=== PATIENT | male | born 1955 | race African-American/Black ===

== ENCOUNTER 2021-06-03 15:19 | Inpatient (IN) | payer OTHER ==
[~2021-06-03] VITALS: Ht 175.3 cm; Wt 70.3 kg
[2021-06-03] MEDS ORDERED: HYDR100T27 PO (15:59)
[2021-06-03] MEDS ORDERED: CRAN3875 PO (15:59)
[2021-06-03] MEDS ORDERED: METO25TA6 PO (15:59)
[2021-06-03] MEDS ORDERED: ACET-2154 PO (15:59)
[2021-06-03] MEDS ORDERED: HYDR-4209 PO (15:59)
[2021-06-03] MEDS ORDERED: ASCO500P18 PO (15:59)
[2021-06-03] MEDS ORDERED: CLON1PAT TD (15:59)
[2021-06-03] MEDS ORDERED: DEXT38GE12 PO (15:59)
[2021-06-03] MEDS ORDERED: AMLO10TA59 PO (15:59)
[2021-06-03] MEDS ORDERED: RISP1TAB97 PO (15:59)
[2021-06-03] MEDS ORDERED: DOCU-141 PO (15:59)
[2021-06-03] MEDS ORDERED: FERR325T28 PO (15:59)
[2021-06-03] MEDS ORDERED: INSU100V42 SQ (15:59)
[2021-06-03] MEDS ORDERED: GLUC1KIT IM (15:59)
[2021-06-03] MEDS ORDERED: MULT-213 PO (15:59)
[2021-06-03] MEDS ORDERED: GABA600T12 PO (15:59)
[2021-06-03] MEDS ORDERED: FAMO20TA8 PO (15:59)
[2021-06-03] MEDS ORDERED: ASPI81TA31 PO (15:59)
[2021-06-03] MEDS ORDERED: DOXA4TAB3 PO (15:59)
[2021-06-03] MEDS ORDERED: ACET-2605 PO ×2 (15:59)
[2021-06-03] MEDS ORDERED: CRAN425C6 PO (15:59)
[2021-06-03] MEDS ORDERED: APIX5TAB PO (15:59)
[2021-06-03] MEDS ORDERED: SENN-261 PO (15:59)
[2021-06-03 16:25] LABS: HEMATOCRIT 27.7 % (36.7-47.1); MEAN CORPUSCULAR VOLUME 86.1 fL (73.0-96.2); PLATELET COUNT (AUTO) 251 K/uL (152-348)
[2021-06-03 16:30] LABS: CREATININE 2.3 mg/dL (0.6-1.3); POTASSIUM 5.1 mmol/L (3.5-5.1)
[2021-06-03 16:38] LABS: *CLARITY,URINE CLOUDY (CLEAR); *COLOR,URINE YELLOW (YELLOW)
[2021-06-03 16:39] LABS: *BILIRUBIN,URIN SMALL (NEGATIVE); *BLOOD, URINE LARGE (NEGATIVE); *KETONES,URINE NEGATIVE (NEGATIVE); *UROBILINOGEN,URINE 0.2 E.U./dl (NORMAL); LEUKOCYTE ESTERASE ,URINE LARGE (NEGATIVE); NITRITE, URINE NEGATIVE (NEGATIVE); UGLUCOSE NEGATIVE (NEGATIVE)
[2021-06-03 16:43] LABS: BILIRUBIN,DIRECT 0.1 mg/dL (0.0-0.2); BILIRUBIN,TOTAL 0.3 mg/dL (0.2-1.0); TOTAL PROTEIN, SERUM 6.5 g/dL (6.4-8.2)
[2021-06-03 16:51] LABS: BACTERIA,URINE MANY /HPF (NONE SEEN); MUCUS,URINE FEW /LPF (0-FEW); RBC,URINE TNTC /HPF (0-3); SQUAMOUS EPITHELIAL CELL,UR NONE SEEN /HPF (NONE SEEN); URINE AMORPHOUS URATE MANY /HPF; WBC,URINE TNTC /HPF (0-3)
[2021-06-03] MEDS ORDERED: IV NS 1000 ML 1,000 ML IV ONE ×2 (17:30→18:30)
[2021-06-03] MEDS ORDERED: CEFTRIAXONE 1 G in IV DEXTROSE 5% 50 ML IV ONE (17:30)
[2021-06-03] MEDS ORDERED: CEFTRIAXONE /D5W 50ML IVPB **ER PYXIS IV ONE (17:39)
--- NOTE | 2021-06-03 19:10 | NUR ---
Received hands-off report from NOEMY Feliciano.
--- NOTE | 2021-06-03 19:43 | NUR ---
Report given to NOEMY Jeong.
--- NOTE | 2021-06-03 20:00 | NUR ---
Pt. admitted to telemetry 322, under care of Dr. Omega Avalos. Belongs List completed
--- NOTE | 2021-06-03 20:00 | NUR ---
Patient brought up from Emergency department at 2000. when recieving report it was told that patient is nonverbal, but patient is able to communicate and knows some what of what is going on. No signs or reports of shortness. Comfortable on room air, oxygen saturation within normal limits. Nonambulatory. Patient has many wounds, left heal, left leg, bilateral buttocks, and sacreal region. Bed in low and locked position, call light within reach. Safety and falf precautions in place. Will continue to monitor.
[2021-06-03 20:57] VITALS: BP 145/61
[2021-06-03] MEDS ORDERED: VANCOMYCIN IV 1,000 MG in IV DEXTROSE 5% 250 ML IV ONE (22:30)
[2021-06-03] MEDS ORDERED: INSULIN REGULAR, HUMAN 300 UNITS/3 ML VIAL SQ PRN (22:30)
[2021-06-03] MEDS ORDERED: MEROPENEM 1 G in IV NORMAL SALINE 100 ML IV SCH (22:30)
[2021-06-03] MEDS ORDERED: DEXTROSE 50% 50 ML DISP.SYRIN IV PRN (22:30)
[2021-06-03] MEDS ORDERED: PIPERACILLIN/TAZO 2.25 G in IV DEXTROSE 5% 50 ML IV SCH (22:30)
[2021-06-03] MEDS ORDERED: MEROPENEM 1 G in IV NORMAL SALINE 100 ML IV ONE (23:00)
[2021-06-03] MEDS ORDERED: VANCOMYCIN IV 200 ML ONE (23:32)
[2021-06-03] MEDS ORDERED: MEROPENEM 1GM/NS 100ML IVPB **ER PYXIS ONLY IV ONE (23:33)
[2021-06-03] MEDS: IV LACTATED RINGERS SOLUTION 1,000 ML IV PRN (23:49)
[2021-06-04 00:27] VITALS: BP 159/62
[2021-06-04 04:00] VITALS: BP 164/70
[2021-06-04] MEDS: hydrALAZINE HCL 50 MG TABLET PO SCH ×3 (05:56→23:03)
[2021-06-04] MEDS: BLOOD SUGAR DIAGNOSTIC 1 EACH STRIP VI SCH ×4 (06:46→20:39)
--- NOTE | 2021-06-04 07:09 | NUR ---
patient resting comfortably. No reports of pain at this time. No signs of distress. Medications given as ordered. Last accu check 105. No need for insulin coverage. Wound care consult ordered for multiple pressure ulcers. Blood pressure elevated, given hydralazine as ordered.
--- NOTE | 2021-06-04 07:15 | NUR ---
received patient in bed awake in stable condition, no complains of any SOB, pain or discomfort at this time. patient on room air. safety precautions in place. call light within reach. will continue to monitor.
[2021-06-04 08:58] VITALS: BP 125/52
[2021-06-04] MEDS: APIXABAN 5 MG TABLET PO SCH ×3 (09:00→16:48)
[2021-06-04] MEDS: risperiDONE 1 MG TABLET PO SCH ×3 (09:00→16:48)
[2021-06-04] MEDS: FERROUS SULFATE 325 MG TABEC PO SCH ×2 (09:00→09:08)
[2021-06-04] MEDS: ASPIRIN 81 MG TAB.CHEW PO SCH (09:07)
[2021-06-04] MEDS: AMLODIPINE 10 MG TABLET PO SCH (09:08)
[2021-06-04] MEDS: GABAPENTIN 300 MG CAPSULE PO SCH (09:08)
[2021-06-04] MEDS: METOPROLOL TARTRATE 25 MG TABLET PO SCH ×2 (09:08→16:43)
[2021-06-04 11:02] LABS: POTASSIUM 4.4 mmol/L (3.5-5.1)
--- NOTE | 2021-06-04 11:29 | NUR ---
WOUND CARE CONSULT: PT PRESENTS WITH MULTIPLE AREAS OF SCARRING TO LOWER EXTREMITIES, BUTTOCKS AND SACRUM WITH SOME OPEN AREAS OF MOISTURE AND LEFT FOOT WOUND,PRESENT ON ADMISSION. DPM CONSULT CALLED TO DR MEDINA. RECOMMENDATIONS MADE FOR SKIN PROTECTION. DISCUSSED WITH NURSING STAFF.MD IN AGREEMENT WITH PLAN OF CARE. PT IS REFUSING LOW AIRLOSS MATTRESS. MD IN AGREEMENT WITH PLAN OF CARE.
[2021-06-04] MEDS ORDERED: Z GUARD REMEDY PASTE 57 GM TUBE TOP PRN (11:45)
[2021-06-04 12:38] VITALS: BP 120/52
[2021-06-04] MEDS: MEROPENEM 1 G in IV NORMAL SALINE 100 ML IV SCH (13:59)
[2021-06-04] MEDS ORDERED: MEROPENEM 1 G in IV NORMAL SALINE 100 ML IV SCH (14:00)
[2021-06-04] MEDS: INSULIN REGULAR, HUMAN 300 UNIT/3 ML VIAL SQ PRN (16:42)
[2021-06-04 16:57] VITALS: BP 119/54
--- NOTE | 2021-06-04 18:33 | NUR ---
patient in bed sleeping in stable condition. no signs of any SOB, pain or discomfort noted at this time. elaine catheter draining well. midline patent and intact. call light within reach. will report to oncoming shift.
[2021-06-04 20:06] VITALS: BP 113/44
[2021-06-04] MEDS: DOXAZOSIN 2 MG TABLET PO SCH (20:31)
[2021-06-04] MEDS: SENNOSIDES 1 TABLET PO SCH (20:31)
[2021-06-04] MEDS: Z GUARD REMEDY PASTE 57 GM TUBE TOP SCH (20:32)
[2021-06-04] MEDS: IV LACTATED RINGERS SOLUTION 1,000 ML IV PRN (20:32)
--- NOTE | 2021-06-04 20:40 | NUR ---
Patient blood sugar 158 but refused 2 units sliding scale.
--- NOTE | 2021-06-04 22:00 | NUR ---
Patient alert oriented, no complain of pain, require total assist with adl's. Patient on elaine cath draining with yellow color urine in moderate amount, left upper arm midline patent and intact, patient too suspicious with the care, explained to patient all procedures done and medication given. cont to monitor.
[2021-06-04] MEDS: VANCOMYCIN IV 1,000 MG in IV DEXTROSE 5% 250 ML IV SCH (22:54)
[2021-06-05] VITALS: BP 144/63
[2021-06-05] MEDS: MEROPENEM 1 G in IV NORMAL SALINE 100 ML IV SCH ×2 (02:07→14:10)
[2021-06-05] MEDS: hydrALAZINE HCL 50 MG TABLET PO SCH ×3 (06:16→21:14)
[2021-06-05] MEDS: BLOOD SUGAR DIAGNOSTIC 1 EACH STRIP VI SCH ×4 (06:16→21:11)
--- NOTE | 2021-06-05 07:08 | NUR ---
Patient alert no sob no chest pain, no complain of pain, tele monitor sinus rhtyhm. Treatment done on sacrum excoriation, right foot wound, left heel wound, patient uncooperative with care, refused to be turn and reposition, refused to be clean, refused lab works done, explained the risk and benefit but refused, report to AM glass sander belt Nurse.
[2021-06-05 08:00] VITALS: BP 140/55
[2021-06-05 08:14] LABS: MEAN CORPUSCULAR HEMOGLOBIN 27.3 uug (23.8-33.4); MEAN CORPUSCULAR VOLUME 84.9 fL (73.0-96.2); PLATELET COUNT (AUTO) 215 K/uL (152-348)
[2021-06-05 08:31] LABS: CREATININE 1.8 mg/dL (0.6-1.3); MAGNESIUM 1.8 mg/dL (1.8-2.4); PHOSPHOROUS 3.5 mg/dL (2.5-4.9); POTASSIUM 4.3 mmol/L (3.5-5.1)
[2021-06-05] MEDS: ASPIRIN 81 MG TAB.CHEW PO SCH (08:45)
[2021-06-05] MEDS: GABAPENTIN 300 MG CAPSULE PO SCH (08:47)
[2021-06-05] MEDS: FERROUS SULFATE 325 MG TABEC PO SCH (08:47)
[2021-06-05] MEDS: risperiDONE 1 MG TABLET PO SCH ×2 (08:47→17:16)
[2021-06-05] MEDS: AMLODIPINE 10 MG TABLET PO SCH (08:52)
[2021-06-05] MEDS: METOPROLOL TARTRATE 25 MG TABLET PO SCH ×2 (08:53→17:16)
[2021-06-05] MEDS: APIXABAN 5 MG TABLET PO SCH ×3 (08:57→18:09)
[2021-06-05] MEDS: INSULIN REGULAR, HUMAN 300 UNIT/3 ML VIAL SQ PRN ×2 (08:58→16:25)
[2021-06-05 08:59] LABS: HEMATOCRIT 24.6 % (36.7-47.1)
[2021-06-05] MEDS: Z GUARD REMEDY PASTE 57 GM TUBE TOP SCH ×2 (09:39→20:19)
[2021-06-05] MEDS: MUPIROCIN 2% OINT 22 GM TUBE NS SCH ×2 (09:40→20:23)
[2021-06-05] MEDS: IV LACTATED RINGERS SOLUTION 1,000 ML IV PRN ×2 (09:44→20:32)
[2021-06-05 16:45] VITALS: BP 145/60
[2021-06-05] MEDS: GLUCERNA SHAKE VANILLA 237 ML CAN PO SCH (17:17)
--- NOTE | 2021-06-05 17:27 | NUR ---
Notified Dr. Avalos that patient had some minor bleeding on feet after feet were cleaned and dry skin peeled off. Held eliquis at this time.
--- NOTE | 2021-06-05 18:05 | NUR ---
Received return call from Dr. Avalos, orders received to administer dose of eliquis despite bleeding.
--- NOTE | 2021-06-05 18:39 | NUR ---
Patient continues to be alert and oriented, Room air saturation WNL, hemodynamically stable, afebrile. No needs at this time. Wound care performed, bed in low position, side rails upx2, bed alarm on.
[2021-06-05] MEDS: SENNOSIDES 1 TABLET PO SCH (20:20)
[2021-06-05] MEDS: DOXAZOSIN 2 MG TABLET PO SCH (20:43)
[2021-06-05 20:45] VITALS: BP 112/58
--- NOTE | 2021-06-05 20:47 | NUR ---
PATIENT REFUSED CARDURA MEDICATION HE SAID HE DOESN'T TAKE CARDURA MEDICATION .
--- NOTE | 2021-06-05 21:11 | NUR ---
fingerstick blood sugar 167 mg/dl,patikevin refused insulin sliding scale he said he doesn't not need insulin for that sugar .
[2021-06-05] MEDS: VANCOMYCIN IV 1,000 MG in IV DEXTROSE 5% 250 ML IV SCH (22:58)
[2021-06-06] VITALS (7 sets, daily range): BP systolic 130–162; BP diastolic 60–80
[2021-06-06] MEDS: MEROPENEM 1 G in IV NORMAL SALINE 100 ML IV SCH ×2 (01:40→14:13)
[2021-06-06] MEDS: hydrALAZINE HCL 50 MG TABLET PO SCH ×3 (05:14→22:55)
--- NOTE | 2021-06-06 05:40 | NUR ---
with SUPERVISOR MAJOR APPLIANCE ASSEMBLY HELP am care offered to patient ,PATIENT refused and dont want to be touch and reposition.patient also REFUSED wound dressing HE WANTS IT DONE ONLY BY WOUND CARE NURSE told patient that wound care nurse gave us nurses wound care orders he said NO and it can wait on Monday .
[2021-06-06] MEDS: BLOOD SUGAR DIAGNOSTIC 1 EACH STRIP VI SCH ×4 (06:49→22:30)
[2021-06-06 07:40] LABS: HEMATOCRIT 24.4 % (36.7-47.1); MEAN CORPUSCULAR HEMOGLOBIN 27.2 uug (23.8-33.4); MEAN CORPUSCULAR VOLUME 83.8 fL (73.0-96.2); PLATELET COUNT (AUTO) 215 K/uL (152-348)
[2021-06-06 08:04] LABS: CREATININE 1.6 mg/dL (0.6-1.3); PHOSPHOROUS 3.2 mg/dL (2.5-4.9); POTASSIUM 4.1 mmol/L (3.5-5.1)
[2021-06-06] MEDS: GABAPENTIN 300 MG CAPSULE PO SCH (08:58)
[2021-06-06] MEDS: risperiDONE 1 MG TABLET PO SCH ×2 (08:58→17:20)
[2021-06-06] MEDS: METOPROLOL TARTRATE 25 MG TABLET PO SCH ×2 (08:58→17:21)
[2021-06-06] MEDS: ASPIRIN 81 MG TAB.CHEW PO SCH (08:58)
[2021-06-06] MEDS: AMLODIPINE 10 MG TABLET PO SCH (08:58)
[2021-06-06] MEDS: FERROUS SULFATE 325 MG TABEC PO SCH (08:58)
[2021-06-06] MEDS: ARGININE/GLUTAMINE/CALCIUM BMB 1 EACH POWD.PACK PO SCH ×2 (09:00→17:21)
[2021-06-06] MEDS: GLUCERNA SHAKE VANILLA 237 ML CAN PO SCH ×2 (09:00→17:25)
[2021-06-06] MEDS: Z GUARD REMEDY PASTE 57 GM TUBE TOP SCH ×2 (09:00→20:48)
[2021-06-06] MEDS: MUPIROCIN 2% OINT 22 GM TUBE NS SCH ×2 (09:01→20:49)
[2021-06-06] MEDS: APIXABAN 5 MG TABLET PO SCH ×2 (09:03→17:21)
[2021-06-06] MEDS: IV LACTATED RINGERS SOLUTION 1,000 ML IV PRN ×2 (09:08→20:00)
[2021-06-06] MEDS: THERAHONEY GEL 1.5 OZ TUBE TOP SCH (09:10)
[2021-06-06] MEDS: INSULIN REGULAR, HUMAN 300 UNIT/3 ML VIAL SQ PRN (12:30)
[2021-06-06] MEDS: FLUOCINONIDE 0.05% CREAM 30 GM TUBE TP SCH (17:26)
--- NOTE | 2021-06-06 18:45 | NUR ---
Patient was cooperative with care, all needs met. Placed on air mattress. Dr. Avalos notified of rash on abdomen and legs, scraping taken and reviewed by Dr. Avalos. Med orders received, and applied as ordered. Patient in no distress at this time, bed in low position, side rails upx2.
[2021-06-06] MEDS: DOXAZOSIN 2 MG TABLET PO SCH (20:47)
[2021-06-06] MEDS: SENNOSIDES 1 TABLET PO SCH (20:56)
[2021-06-07 00:06] VITALS: BP 170/67
[2021-06-07] MEDS: MEROPENEM 1 G in IV NORMAL SALINE 100 ML IV SCH ×2 (02:05→14:06)
[2021-06-07] MEDS: BLOOD SUGAR DIAGNOSTIC 1 EACH STRIP VI SCH ×3 (06:12→16:30)
[2021-06-07] MEDS: hydrALAZINE HCL 50 MG TABLET PO SCH ×2 (06:12→14:07)
[2021-06-07 06:36] LABS: HEMATOCRIT 24.7 % (36.7-47.1); MEAN CORPUSCULAR HEMOGLOBIN 26.9 uug (23.8-33.4); MEAN CORPUSCULAR VOLUME 83.8 fL (73.0-96.2); PLATELET COUNT (AUTO) 202 K/uL (152-348)
[2021-06-07 06:56] LABS: CREATININE 1.5 mg/dL (0.6-1.3); MAGNESIUM 1.7 mg/dL (1.8-2.4); PHOSPHOROUS 2.9 mg/dL (2.5-4.9)
--- NOTE | 2021-06-07 07:30 | NUR ---
Alert, oriented x 4, able to verbalized needs appropriately. Legally blind. IVF infusing well
[2021-06-07] MEDS: FERROUS SULFATE 325 MG TABEC PO SCH ×2 (09:00→09:19)
[2021-06-07] MEDS ORDERED: CLONIDINE-TTS 1 PATCH TD SCH (09:00)
[2021-06-07] MEDS: ARGININE/GLUTAMINE/CALCIUM BMB 1 EACH POWD.PACK PO SCH ×2 (09:00→17:00)
[2021-06-07] MEDS: ASPIRIN 81 MG TAB.CHEW PO SCH (09:18)
[2021-06-07] MEDS: GABAPENTIN 300 MG CAPSULE PO SCH (09:20)
[2021-06-07] MEDS: risperiDONE 1 MG TABLET PO SCH ×2 (09:20→18:10)
[2021-06-07] MEDS: THERAHONEY GEL 1.5 OZ TUBE TOP SCH (09:23)
[2021-06-07] MEDS: AMLODIPINE 10 MG TABLET PO SCH (09:24)
[2021-06-07] MEDS: METOPROLOL TARTRATE 25 MG TABLET PO SCH ×2 (09:24→18:11)
[2021-06-07] MEDS: APIXABAN 5 MG TABLET PO SCH ×2 (09:27→18:11)
[2021-06-07] MEDS: GLUCERNA SHAKE VANILLA 237 ML CAN PO SCH ×2 (09:28→18:12)
[2021-06-07] MEDS ORDERED: MAGNESIUM SULFATE/D5W 100 ML IV SCH (09:30)
[2021-06-07 11:36] VITALS: BP 158/66
[2021-06-07] MEDS: MUPIROCIN 2% OINT 22 GM TUBE NS SCH (11:57)
[2021-06-07] MEDS: Z GUARD REMEDY PASTE 57 GM TUBE TOP SCH (11:57)
[2021-06-07] MEDS: INSULIN REGULAR, HUMAN 300 UNIT/3 ML VIAL SQ PRN (11:58)
[2021-06-07] MEDS: FLUOCINONIDE 0.05% CREAM 30 GM TUBE TP SCH ×3 (11:58→18:13)
[2021-06-07] MEDS ORDERED: MERO1VIA23 IV (14:51)
[2021-06-07] MEDS ORDERED: FLUO15CR TP (14:51)
[2021-06-07 15:52] VITALS: BP 140/65
[2021-06-07 18:11] VITALS: BP 145/60
--- NOTE | 2021-06-07 19:00 | NUR ---
With discharge order to SNF but per CM patient refused SNF placement and wants to be discharge to the street. Homeless resources provided but refused and will acces own transportation. Midline removed. Tele removed. ID band removed. Provided with clothing and wheelchair. Discharged via wheelchair in fair condition, not in distress, afebrile
[2021-06-07] MEDS ORDERED: MEROPENEM 1 G in IV NORMAL SALINE 100 ML IV SCH (22:00)
[2021-06-07] MEDS ORDERED: MEROPENEM 0.5 G in IV NORMAL SALINE 50 ML IV SCH (22:00)
== END 2021-06-07 20:43 | disposition home or self-care (01) | DRG 720 ==
LOC: ER 15:19 → TELE3 19:50
PROVIDERS: ADMIT Nurse Practitioner Acute Care; ATTEND Nurse Practitioner Acute Care
PROC: B547ZZA Ultrasonography of Left Subclavian Vein, Guidance (ICD-10-PCS; principal; 2021-06-04)
PROC: 05H633Z Insertion of Infusion Device into Left Subclavian Vein, Percutaneous Approach (ICD-10-PCS; principal; 2021-06-04)
DX: A41.9 Sepsis, unspecified organism (principal); N17.0 Acute kidney failure with tubular necrosis; G93.41 Metabolic encephalopathy; L89.153 Pressure ulcer of sacral region, stage 3; E87.2 Acidosis; E11.22 Type 2 diabetes mellitus with diabetic chronic kidney disease; E11.42 Type 2 diabetes mellitus with diabetic polyneuropathy; E11.622 Type 2 diabetes mellitus with other skin ulcer; N39.0 Urinary tract infection, site not specified; D64.9 Anemia, unspecified; E78.5 Hyperlipidemia, unspecified; F03.90 Unspecified dementia, unspecified severity, without behavioral disturbance, psychotic disturbance, mood disturbance, and anxiety; J45.909 Unspecified asthma, uncomplicated; K21.9 Gastro-esophageal reflux disease without esophagitis; N18.9 Chronic kidney disease, unspecified; Z79.4 Long term (current) use of insulin; Z87.440 Personal history of urinary (tract) infections; Z79.899 Other long term (current) drug therapy; Z79.01 Long term (current) use of anticoagulants; I25.10 Atherosclerotic heart disease of native coronary artery without angina pectoris; N31.9 Neuromuscular dysfunction of bladder, unspecified; N13.9 Obstructive and reflux uropathy, unspecified; L97.919 Non-pressure chronic ulcer of unspecified part of right lower leg with unspecified severity; L97.929 Non-pressure chronic ulcer of unspecified part of left lower leg with unspecified severity; Z74.09 Other reduced mobility; Z99.3 Dependence on wheelchair; Z20.822 Contact with and (suspected) exposure to COVID-19; M81.0 Age-related osteoporosis without current pathological fracture; I12.9 Hypertensive chronic kidney disease with stage 1 through stage 4 chronic kidney disease, or unspecified chronic kidney disease
CPT/HCPCS: 36415; 70030-TC; 71045; 83605; 83735; 84100; 85025; 85730; 87040; 87086; 93005; 97161; A4663; G0378; J0696; J1815; J2185; J3370; J3475; J3490; J7030; J7060; J7120

== ENCOUNTER 2021-06-07 21:00 | Emergency (ER) | payer OTHER ==
[~2021-06-07] VITALS: Ht 172.7 cm; Wt 74.8 kg
[~2021-06-07 21:00] MED LIST: ACET-2154 PO; ACET-2605 PO; AMLO10TA59 PO; APIX5TAB PO; ASCO500P18 PO; ASPI81TA31 PO; CLON1PAT TD; CRAN3875 PO; CRAN425C6 PO; DEXT38GE12 PO; DOCU-141 PO; DOXA4TAB3 PO; FAMO20TA8 PO; FERR325T28 PO; FLUO15CR TP; GABA600T12 PO; GLUC1KIT IM; HYDR-4209 PO; HYDR100T27 PO; INSU100V42 SQ; MERO1VIA23 IV; METO25TA6 PO; MULT-213 PO; RISP1TAB97 PO; SENN-261 PO
[2021-06-07] MEDS ORDERED: NEOMY/BACITRA/POLYMYXIN B OINT UD PACKET TP ONE ×2 (22:15→22:50)
--- NOTE | 2021-06-07 22:36 | NUR ---
Paged Omega Avalos DNP as requested by Dr Gomez.
--- NOTE | 2021-06-08 00:10 | NUR ---
called [facility], , to talk to the child welfare caseworker to verify pt's place at the center. the person who answered the phone was unable to verify and said to call back at 0900 am.
--- NOTE | 2021-06-08 03:54 | NUR ---
care of the pt endorsed to contreras Jarrett. pt resting, no sign of distress,
--- NOTE | 2021-06-08 09:34 | NUR ---
PT IS RESTING IN BED COMFORTABLY. [facility] WAS CALLED TO GIVE REPORT FOR THE PT. PT IS GOING TO BE TRANSFERED TO HIS NURSING FACILITY VIA S AMBULANCE OF [facility] ([phone]). [facility] IS 1230 PM. TRAKING #[id number]. SPOKE TO ACCURACY EXPERT RAIMUNDO.
--- NOTE | 2021-06-08 12:37 | NUR ---
PT LEFT TO HIS [facility] FACILITY VIA BLS AMBULANCE. REPORT WAS GIVEN TO AMBULANCE EMT.
[2021-06-08 12:41] VITALS: BP 136/75
== END 2021-06-08 12:42 ==
LOC: ER 21:00
DX: S99.922A Unspecified injury of left foot, initial encounter (principal); V79.88XA Bus occupant (driver) (passenger) injured in other specified transport accidents, initial encounter; Y92.410 Unspecified street and highway as the place of occurrence of the external cause; H54.8 Legal blindness, as defined in USA; J45.909 Unspecified asthma, uncomplicated; K21.9 Gastro-esophageal reflux disease without esophagitis; E78.5 Hyperlipidemia, unspecified; I25.10 Atherosclerotic heart disease of native coronary artery without angina pectoris; E11.9 Type 2 diabetes mellitus without complications; Z79.4 Long term (current) use of insulin; Z79.01 Long term (current) use of anticoagulants; Z79.899 Other long term (current) drug therapy
CPT/HCPCS: 73630; A4217; A4663

== ENCOUNTER 2021-06-11 21:29 | Emergency (ER) | payer OTHER ==
[~2021-06-11] VITALS: Ht 172.7 cm; Wt 72.6 kg
[~2021-06-11 21:29] MED LIST changes: -ACET-2154 PO; -CRAN3875 PO; -GLUC1KIT IM
--- NOTE | 2021-06-11 21:35 | NUR ---
Pt BIB private ambulance from [facility] for abnormal labs HBG 7.1/ HCT 22.2 A/O x3, no SOB or labored breathing, denies any CP/pressure. Denies any GI/ distress.
--- NOTE | 2021-06-11 21:40 | NUR ---
Dr. morgan at bedside, MSE in progress.
--- NOTE | 2021-06-11 22:03 | NUR ---
Note dandrejaime in EDM - 06/11/21 at 2237 by CHIQUI Pt BIB private ambulance from [facility] for abnormal labs HBG 7.1/ HCT 22.2 A/O x3, no SOB or labored breathing, denies any CP/pressure. Denies any GI/ distress.
[2021-06-11 22:11] LABS: HEMATOCRIT 22.9 % (36.7-47.1); MEAN CORPUSCULAR HEMOGLOBIN 27.4 uug (23.8-33.4); MEAN CORPUSCULAR VOLUME 84.2 fL (73.0-96.2); PLATELET COUNT (AUTO) 213 K/uL (152-348)
[2021-06-11 22:21] LABS: CREATININE 1.8 mg/dL (0.6-1.3); POTASSIUM 3.7 mmol/L (3.5-5.1)
[2021-06-11] MEDS ORDERED: CYANOCOBALAMIN 1000 MCG/ML VIAL IM ONE (23:45)
--- NOTE | 2021-06-11 23:57 | NUR ---
Called [facility] at [phone], spoke with Tiffany and made aware that patient is returning back to facility.
--- NOTE | 2021-06-12 00:05 | NUR ---
Called [facility] for traportation services atr [phone] and per Jaye unable to provide services until pass 7:00AM.
--- NOTE | 2021-06-12 00:11 | NUR ---
Called [facility] for transportation services and per Unruly " we are saturated at the moment and unable to provide you with services".
--- NOTE | 2021-06-12 00:13 | NUR ---
Called [facility] for transportation services and unable to provide transportation for the night.
[2021-06-12] MEDS ORDERED: CYANOCOBALAMIN 1000 MCG/ML VIAL ONE (00:17)
--- NOTE | 2021-06-12 00:18 | NUR ---
Called [facility] at [phone] and per AJ, transportation ambulance services are unable to be provided until pass afternoon.
--- NOTE | 2021-06-12 00:23 | NUR ---
[facility]ed [facility] at and unable to provide us with transportation services.
--- NOTE | 2021-06-12 00:46 | NUR ---
Called [facility] and spoke with Jaye, scheduled for slate picker at 7:30- 8:00 AM. Called [facility] and spoke with Tiffany, made aware of pt's retun time.
--- NOTE | 2021-06-12 02:35 | NUR ---
[facility] unit [facility] arrived at facility Attempted to call [facility], did not sheepskin pickler, unable to leave voicemail.
--- NOTE | 2021-06-12 02:45 | NUR ---
Patient discharged to [facility]. Written and verbal after care instructions given to [facility] unit [facility] verbalized understanding of instructions.
[2021-06-12 02:48] VITALS: BP 155/77
== END 2021-06-12 02:49 ==
LOC: ER 21:29
DX: D64.9 Anemia, unspecified (principal); E53.8 Deficiency of other specified B group vitamins; Z20.822 Contact with and (suspected) exposure to COVID-19; M62.50 Muscle wasting and atrophy, not elsewhere classified, unspecified site; F20.9 Schizophrenia, unspecified; E11.9 Type 2 diabetes mellitus without complications; Z79.4 Long term (current) use of insulin
CPT/HCPCS: 36415; 80048; 82607; 82728; 83550; 85025; 86850; 86900; 86901; 87426; 99283; J3420; A4663

== ENCOUNTER 2021-08-23 15:08 | Inpatient (IN) | payer OTHER ==
[~2021-08-23] VITALS: Ht 172.7 cm; Wt 77.1 kg
[2021-08-23] MEDS ORDERED: PIPERACILLIN SODIUM/TAZOBACTAM 3.375 G in IV DEXTROSE 5% 50 ML IV ONE (15:15)
[2021-08-23] MEDS ORDERED: VANCOMYCIN IV 1,000 MG in IV DEXTROSE 5% 250 ML IV ONE (15:15)
[2021-08-23] MEDS ORDERED: IV NORMAL SALINE 1000 ML BAG IV ONE ×2 (15:15→16:30)
[2021-08-23] MEDS ORDERED: PIPERACILLIN/TAZOBACTAM/D5W 50 ML IV ONE (15:45)
[2021-08-23] MEDS ORDERED: VANCOMYCIN IV 200 ML ONE (15:45)
[2021-08-23 16:01] LABS: HEMATOCRIT 23.3 % (36.7-47.1); MEAN CORPUSCULAR HEMOGLOBIN 27.3 uug (23.8-33.4); MEAN CORPUSCULAR VOLUME 85.9 fL (73.0-96.2); PLATELET COUNT (AUTO) 249 K/uL (152-348)
[2021-08-23 16:04] LABS: ABG BASE EXCESS -14.3 mmol/L; ABG HCO3 11.5 mmol/L; ABG PCO2 26.5 mmHg (35.0-45.0); ABG PH 7.255 (7.350-7.450); ABG PO2 128.9 mmHg (75.0-100.0); ABG SITE RIGHT RADIAL; ABG TOTAL HEMOGLOBIN 7.7 G/dL (13.5-18.0); COHb 0.8 % (0.5-1.5); MetHb 0.8 % (0.0-1.5); O2Hb 97.1 % (94.0-97.0)
[2021-08-23 16:09] LABS: POTASSIUM 6.1 mmol/L (3.5-5.1)
[2021-08-23 16:21] LABS: BILIRUBIN,DIRECT 0.6 mg/dL (0.0-0.2); BILIRUBIN,TOTAL 0.9 mg/dL (0.2-1.0)
[2021-08-23] MEDS ORDERED: SODIUM BICARBONATE 8.4% 50 MEQ/50 ML DISP.SYRIN IV ONE ×2 (16:30→16:47)
[2021-08-23] MEDS ORDERED: DEXTROSE 50% 50 ML DISP.SYRIN IV ONE (16:30)
[2021-08-23] MEDS ORDERED: INSULIN REGULAR, HUMAN 300 UNIT/3 ML VIAL IV ONE (16:30)
[2021-08-23] MEDS ORDERED: CALCIUM CHLORIDE 1 GM/10 ML DISP.SYRIN IVP ONE ×2 (16:30→16:46)
[2021-08-23 16:45] LABS: *BILIRUBIN,URIN NEGATIVE (NEGATIVE); *BLOOD, URINE 3+ (NEGATIVE); *CLARITY,URINE TURBID (CLEAR); *COLOR,URINE RED (YELLOW); *KETONES,URINE 1+ (NEGATIVE); *UROBILINOGEN,URINE 0.2 E.U./dl (NORMAL); LEUKOCYTE ESTERASE ,URINE 3+ (NEGATIVE); NITRITE, URINE NEGATIVE (NEGATIVE); UGLUCOSE NEGATIVE (NEGATIVE)
[2021-08-23] MEDS ORDERED: DEXTROSE 50% 50 ML DISP.SYRIN ONE (16:46)
[2021-08-23] MEDS ORDERED: INSULIN REGULAR, HUMAN 300 UNIT/3 ML VIAL ONE (16:47)
[2021-08-23] MEDS ORDERED: ALBUTEROL SULFATE 2.5 MG/3 ML NEBU NEB ONE (17:00)
[2021-08-23] MEDS ORDERED: NA P133E RC (17:22)
[2021-08-23] MEDS ORDERED: ACET-2154 PO (17:22)
[2021-08-23] MEDS ORDERED: ACET-73 PO (17:22)
[2021-08-23] MEDS ORDERED: CRAN3875 PO (17:22)
[2021-08-23 18:04] LABS: BACTERIA,URINE MODERATE /HPF (NONE SEEN); RBC,URINE TNTC /HPF (0-3); WBC,URINE TNTC /HPF (0-3)
[2021-08-23 18:05] LABS: MUCUS,URINE MODERATE /LPF (0-FEW); SQUAMOUS EPITHELIAL CELL,UR NONE SEEN /HPF (NONE SEEN)
--- NOTE | 2021-08-23 18:50 | NUR ---
midline rn eta 2200.
--- NOTE | 2021-08-23 19:33 | NUR ---
transfered pt to ccu. pt remained responsive only to pain ful stimuli, Rt suctioned the pt couple of times which improved the breathing rhonchi.
[2021-08-23 19:38] VITALS: BP 121/61
[2021-08-23 20:00] VITALS: BP 100/75
--- NOTE | 2021-08-23 20:30 | NUR ---
Patient is a 66y/o male from [facility] with a chief complaint of Abnormal Labs, Clogged Vuong catheter, and congestion. Patient arrived in the unit via ER gurney. Patient is obtunded responsive to painful stimuli only. Patient has very audible rhonchi able to be heard as soon as the door to the unit was opened. Patient arrived on 5L simple mask, SAT 99%. Sinus tachycardia on the monitor, BP stable. Patient suctioned via nasal suctioning by RT and thick purulent pink tinged sputum obtained. Lung sounds auscultated, no signs of diminishing throughout, rhonchi most prominent in the upper airway. Vuong catheter present is the one he came with from his facility, draining thick pus that is deras/yellow in color with pink tinged cloudy urine, blood clots present as well. Vuong catheter tube has vegetative growth on the inside of the tubing. This Vuong catheter I removed and replaced with a new 18fr. Vuong catheter. Bladder contents remain the same. If clogging of the Vuong catheter remains a problem, continuous bladder irrigation should be considered. Patient's penis has suffered the effects of prison catheterization with the urethra wall eroded away and the urinary meatus now several centimeters down the shaft of the penis, though no sign of current irritation, bleeding, or breakdown present. Patient has several skin issues with pressure wounds on both feet and ankles, full thickness wounds on the sacrum and buttocks as well as evidence of multiple healed pressure injuries on sacrum, buttocks, legs, feet and ankles. All wounds photographed and placed in the chart. Patient bathed and placed in a clean hospital gown. Legs are contracted in 90 degree angles, padded with pillows to offload wounds.
[2021-08-23] MEDS ORDERED: ACETAMINOPHEN 650 MG SUPP.RECT RC PRN (20:45)
[2021-08-23] MEDS ORDERED: IV D5/ 0.9% NACL 1,000 ML IV PRN (20:45)
[2021-08-23] MEDS ORDERED: ONDANSETRON 4 MG/2 ML VIAL IV PRN (20:45)
[2021-08-23 21:00] VITALS: BP 95/55
--- NOTE | 2021-08-23 21:07 | NUR ---
Patient has order for PICC line placement. Patient is obtunded and unable to give consent. Dr. Penny made aware that the patient is unable to consent and has no known family to contact for consent, and gave emergency consent for PICC line placement.
[2021-08-23 22:00] VITALS: BP 129/54
[2021-08-23] MEDS: MEROPENEM 0.5 G in IV NORMAL SALINE 50 ML IV SCH (22:10)
[2021-08-23 23:00] VITALS: BP 122/56
[2021-08-24] VITALS (25 sets, daily range): BP systolic 114–151; BP diastolic 44–94
[2021-08-24 05:26] LABS: MEAN CORPUSCULAR HEMOGLOBIN 27.3 uug (23.8-33.4); MEAN CORPUSCULAR VOLUME 87.8 fL (73.0-96.2); PLATELET COUNT (AUTO) 214 K/uL (152-348)
[2021-08-24 05:36] LABS: PHOSPHOROUS 6.4 mg/dL (2.5-4.9); POTASSIUM 5.1 mmol/L (3.5-5.1); TOTAL PROTEIN, SERUM 5.4 g/dL (6.4-8.2)
[2021-08-24 05:37] LABS: HEMATOCRIT 20.5 % (36.7-47.1)
[2021-08-24 05:41] LABS: CREATININE 9.1 mg/dL (0.6-1.3)
[2021-08-24 05:43] LABS: THYROID STIMULATING HORMONE 1.629 mIU/mL (0.358-3.740)
[2021-08-24] MEDS ORDERED: BLOOD SUGAR DIAGNOSTIC 1 EACH STRIP VI SCH (06:00)
--- NOTE | 2021-08-24 06:10 | NUR ---
Dr. Traore in the unit to assess the patient. Full report given. New orders entered by Dr. Traore. See orders in chart.
[2021-08-24] MEDS ORDERED: INSULIN REGULAR, HUMAN 300 UNIT/3 ML VIAL SQ PRN (06:15)
[2021-08-24] MEDS ORDERED: SODIUM BICARBONATE 8.4% 150 MEQ in IV D5W 1000ML 1,000 ML IV PRN (06:15)
[2021-08-24] MEDS ORDERED: DEXTROSE 50% 50 ML DISP.SYRIN IV PRN ×2 (06:15→07:30)
--- NOTE | 2021-08-24 06:15 | NUR ---
Dr. Traore signed Blood product consent form due to patient being obtunded, unable to consent, and having no known family to obtain consent from.
[2021-08-24] MEDS ORDERED: INSULIN REGULAR, HUMAN 300 UNITS/3 ML VIAL SQ PRN (07:30)
[2021-08-24] MEDS: BLOOD SUGAR DIAGNOSTIC 1 EACH STRIP VI SCH ×4 (07:48→20:53)
[2021-08-24] MEDS: SODIUM BICARBONATE 8.4% 150 MEQ in IV D5W 1000ML 1,000 ML IV SCH ×2 (07:51→20:47)
[2021-08-24] MEDS ORDERED: VANCOMYCIN IV 750 MG in IV DEXTROSE 5% 250 ML IV ONE (08:00)
[2021-08-24] MEDS: PANTOPRAZOLE SODIUM 40 MG VIAL IV SCH (08:03)
[2021-08-24] MEDS: Z GUARD REMEDY PASTE 57 GM TUBE TOP SCH ×2 (08:03→20:47)
--- NOTE | 2021-08-24 12:05 | NUR ---
WOUND CARE CONSULT: PT PRESENTS WITH RT HEEL DEEP TISSUE INJURY, LEFT FOOT WOUND, SACRAL STAGE 4 ULCER, SCARRING TO LEFT BUTTOCK SCAR AND RT BUTTOCK STAGE 4 ULCER WITH SCARRING, ALL PRESENT ON ADMISSION. RECOMMENDATIONS MADE FOR SKIN PROTECTION. DISCUSSED WITH NURSING STAFF. SURGICAL AND PODIATRY CONSULTS CALLED TO DR SEVILLA AND DR MEDINA. FIRST STEP LOW AIRLOSS MATTRESS IS ON ORDER. IN AGREEMENT WITH PLAN OF CARE. Addendum: 08/24/21 at 1207 by GO ANSARI RN Amended: Links added.
[2021-08-24 15:30] LABS: POTASSIUM 5.1 mmol/L (3.5-5.1)
[2021-08-24 15:34] LABS: CREATININE 8.7 mg/dL (0.6-1.3)
[2021-08-24 17:14] LABS: BAND % (MANUAL) 7 % (0-10); EOSINOPHILS % (MANUAL) 1 % (0-8); LYMPHOCYTES % (MANUAL) 7 % (20-40); MONOCYTES % (MANUAL) 2 % (2-10); NEUTROPHILS % (MANUAL) 83 % (42-75)
[2021-08-24] MEDS: IPRATROPIUM BROMIDE 0.5 MG/2.5 ML NEBU NEB PRN (17:44)
[2021-08-24] MEDS: ALBUTEROL SULFATE 2.5 MG/ 0.5 ML NEBU NEB PRN (17:44)
--- NOTE | 2021-08-24 19:45 | NUR ---
Received pt lethargic but arousable to voice and touch, alert to name and place and able to follow some simple commands. On 5L NC with O2 sats up to 98%. ST on monitor. No acute distress noted. Maintenance IVF running. F/C intact and patent. Skin assessment done, safety precautions maintained at all times. Continue plan of care.
[2021-08-24] MEDS: MEROPENEM 0.5 G in IV NORMAL SALINE 50 ML IV SCH (21:09)
[2021-08-25] VITALS (26 sets, daily range): BP systolic 120–175; BP diastolic 59–118
--- NOTE | 2021-08-25 01:00 | NUR ---
Pt desaturated down to 79% on 5L NC at this time. Titrated O2 up to 15L nonrebreather mask, O2 sats went up to 92%. HOB elevated. Pt arousable, eyes open spontaneously. No acute distress noted. ST on monitor. Continue to monitor pt.
[2021-08-25 04:50] LABS: HEMATOCRIT 25.3 % (36.7-47.1); MEAN CORPUSCULAR HEMOGLOBIN 27.6 uug (23.8-33.4); MEAN CORPUSCULAR VOLUME 83.5 fL (73.0-96.2); PLATELET COUNT (AUTO) 214 K/uL (152-348)
[2021-08-25 05:02] LABS: BILIRUBIN,TOTAL 1.4 mg/dL (0.2-1.0); MAGNESIUM 1.9 mg/dL (1.8-2.4); PHOSPHOROUS 6.9 mg/dL (2.5-4.9); POTASSIUM 4.7 mmol/L (3.5-5.1); TOTAL PROTEIN, SERUM 5.6 g/dL (6.4-8.2); VANCOMYCIN,RANDOM 18.8 ug/mL (18.0-26.0)
[2021-08-25 05:07] LABS: CREATININE 8.3 mg/dL (0.6-1.3)
--- NOTE | 2021-08-25 06:07 | NUR ---
Pt remains lethargic but arousable to voice and touch. On simple mask 10L with O2 sats > 92%. Pt suctioned noted with thick, deras to pink-tinged secretions. HOB elevated. No acute distress noted. ST on monitor. NG tube to right nare clamped. AM care provided, wound care done. Q2H repositioning. Continuous IVF running. F/C intact and patent. VSS, afebrile. Safety precautions maintained at all times. Will continue plan of care.
--- NOTE | 2021-08-25 06:13 | NUR ---
Dr. Traore at bedside to evaluate pt. Updated MD on pt condition. Continue plan of care.
[2021-08-25] MEDS: SODIUM BICARBONATE 8.4% 150 MEQ in IV D5W 1000ML 1,000 ML IV SCH ×2 (07:50→19:33)
[2021-08-25] MEDS: Z GUARD REMEDY PASTE 57 GM TUBE TOP SCH ×2 (07:51→20:17)
[2021-08-25] MEDS: BLOOD SUGAR DIAGNOSTIC 1 EACH STRIP VI SCH ×4 (07:51→20:17)
[2021-08-25] MEDS: PANTOPRAZOLE SODIUM 40 MG VIAL IV SCH (07:54)
[2021-08-25] MEDS: ALBUMIN HUMAN 25% 100 ML IV SCH ×3 (09:42→23:21)
[2021-08-25] MEDS: INSULIN REGULAR, HUMAN 300 UNIT/3 ML VIAL SQ PRN (11:43)
[2021-08-25] MEDS: ACETYLCYSTEINE 20% 800 MG/4 ML VIAL NEB SCH ×2 (15:35→23:21)
[2021-08-25] MEDS: LEVALBUTEROL HCL 1.25 MG/0.5 ML NEB NEB SCH ×2 (15:35→23:21)
--- NOTE | 2021-08-25 19:08 | NUR ---
patient has NGT placed resume BP/ home meds?
--- NOTE | 2021-08-25 19:30 | NUR ---
Report received. Patient admitted 08/23/21 DX: Sepsis, UTI and acute Renal Failure. Patient sleeping, arouses to name, able to follow commands but all extremities are contracted. Moans and groans during care especially turning and repositioning. business systems administrator: ST rate 100's-110's. Afebrile. O2 3 L NC; O2 saturations above 95%. Assessment completed; see ICU flow sheet for details. Addendum: 08/25/21 at 2253 by JALYN PERDOMO RN Amended: Links added. Addendum: 08/25/21 at 2254 by JALYN PERDOMO RN Amended: Links added. Addendum: 08/25/21 at 2253 by JALYN PERDOMO RN Amended: Links added. Addendum: 08/25/21 at 2253 by JALYN PERDOMO RN Amended: Links added. Addendum: 08/25/21 at 2255 by JLAYN PERDOMO RN Amended: Links added. Addendum: 08/25/21 at 2256 by JALYN PERDOMO RN Amended: Links added. Addendum: 08/25/21 at 2256 by JALYN PERDOMO RN Amended: Links added. Addendum: 08/25/21 at 2257 by JALYN PERDOMO RN Amended: Links added. Addendum: 08/25/21 at 4919 by JALYN PERDOMO RN Amended: Links added.
[2021-08-25] MEDS: ACETAMINOPHEN 650 MG/20.3 ML LIQUID UDC NG PRN (21:20)
[2021-08-25] MEDS: MEROPENEM 0.5 G in IV NORMAL SALINE 50 ML IV SCH (21:22)
--- NOTE | 2021-08-25 21:39 | NUR ---
Spoke to Emma Kumar re: patient's BPs trending high. Order received.
[2021-08-25] MEDS: hydrALAZINE HCL 20 MG/1 ML VIAL IV PRN (21:54)
--- NOTE | 2021-08-25 21:54 | NUR ---
Hydralazine 10mg IV given; BP 175/82, KV=058 ST.
--- NOTE | 2021-08-25 22:12 | NUR ---
Hydralazine effective.
[2021-08-26] VITALS (27 sets, daily range): BP systolic 125–173; BP diastolic 58–90
--- NOTE | 2021-08-26 00:30 | NUR ---
Incontinent of large green mucoid stools. Am care rendered. Wound care treatment done. Patient cooperative. Turned and repositioned. HOB elevated. Addendum: 08/26/21 at 0245 by JALYN PERDOMO RN Amended: Links added.
[2021-08-26 03:24] LABS: *OCCULT BLOOD STOOL POSITIVE (NEGATIVE)
[2021-08-26 04:51] LABS: MEAN CORPUSCULAR HEMOGLOBIN 26.8 uug (23.8-33.4); PLATELET COUNT (AUTO) 191 K/uL (152-348)
[2021-08-26 05:04] LABS: PHOSPHOROUS 5.8 mg/dL (2.5-4.9); POTASSIUM 3.8 mmol/L (3.5-5.1)
[2021-08-26] MEDS: ALBUMIN HUMAN 25% 100 ML IV SCH (05:16)
[2021-08-26] MEDS: hydrALAZINE HCL 20 MG/1 ML VIAL IV PRN ×2 (05:40→15:19)
[2021-08-26] MEDS ORDERED: VANCOMYCIN IV 750 MG in IV DEXTROSE 5% 250 ML IV ONE (06:00)
[2021-08-26] MEDS ORDERED: VANCOMYCIN IV 1,000 MG in IV DEXTROSE 5% 250 ML IV SCH (06:00)
[2021-08-26 06:01] LABS: ABG HCO3 21.9 mmol/L; ABG PCO2 33.3 mmHg (35.0-45.0); ABG PH 7.435 (7.350-7.450); ABG PO2 76.9 mmHg (75.0-100.0); ABG SITE RIGHT RADIAL; ABG TOTAL HEMOGLOBIN 8.9 G/dL (13.5-18.0); COHb 0.8 % (0.5-1.5); MetHb 0.4 % (0.0-1.5); O2Hb 94.2 % (94.0-97.0); VENT MODE Nasal Cannula
[2021-08-26] MEDS: BLOOD SUGAR DIAGNOSTIC 1 EACH STRIP VI SCH ×4 (06:31→21:21)
[2021-08-26] MEDS: IV 1/2NS 1000 ML 1,000 ML IV PRN (06:39)
--- NOTE | 2021-08-26 06:46 | NUR ---
End of shift notes: Patient more awake, able to make needs known. quality assurance monitor body ST-SR, SBP 170's-120's. Hydralazine 10 mg IV given x 2 during the shift. O2 3L NC; O2 sats above 94%. Requires deep nasopharyngeal suctioning, with thick deras secretions. Good cough reflex. Chest sounds: audible wheezing and rhonchi. Urine output 700 ml x 12 H.
[2021-08-26] MEDS: LEVALBUTEROL HCL 1.25 MG/0.5 ML NEB NEB SCH ×3 (07:12→23:30)
[2021-08-26] MEDS: ACETYLCYSTEINE 20% 800 MG/4 ML VIAL NEB SCH ×3 (07:12→23:36)
[2021-08-26] MEDS: Z GUARD REMEDY PASTE 57 GM TUBE TOP SCH ×2 (08:48→20:58)
[2021-08-26] MEDS: PANTOPRAZOLE SODIUM 40 MG VIAL IV SCH (08:48)
[2021-08-26] MEDS: MEROPENEM 0.5 G in IV NORMAL SALINE 50 ML IV SCH ×2 (10:49→22:26)
[2021-08-26] MEDS: INSULIN REGULAR, HUMAN 300 UNIT/3 ML VIAL SQ PRN (11:46)
[2021-08-26] MEDS: METOPROLOL TARTRATE 25 MG TABLET NG SCH ×2 (11:48→21:01)
--- NOTE | 2021-08-26 12:06 | NUR ---
Patient deep suctioned as he was having audible coarse lung sounds. Patient tolerated well.
[2021-08-26] MEDS: NEPRO 1000 ML GT PRN (18:00)
--- NOTE | 2021-08-26 19:05 | NUR ---
Received patient in bed awake and alert. Patient has audible wheezing and rhonchi, productive cough. Patient is SR/ST on the monitor. BP stable. NGT running Glucerna 1.2 @15mL/hr tolerating well. Vuong present draining clear yellow urine. ARPAN PICC patent running IVF.
--- NOTE | 2021-08-26 19:14 | NUR ---
Patient more awake, able to make needs known. Still somewhat confused to place. court recording monitor ST-SR, SBP 160's. Hydralazine 10 mg IV given x 1 during the shift. O2 3L NC; O2 sats above 94%. Requires deep nasopharyngeal suctioning, with thick deras secretions. Good cough reflex. Chest sounds: audible wheezing and rhonchi. Urine output 750 ml x 12 H.
--- NOTE | 2021-08-26 20:17 | NUR ---
Patient called me and asked for some water. Since the patient failed his swallow evaluation, I had to conduct a bedside swallow evaluation. i began with ice chips. The patient was able to chew and swallow these without aspirating. Good swallow reflex and laryngeal elevation present. Progressed to thin water, and the patient was able to swallow the water without aspiration. Gave the patient a cup of ice water which he drank through a straw, consuming 350ml without incident.
[2021-08-26] MEDS: IPRATROPIUM BROMIDE 0.5 MG/2.5 ML NEBU NEB PRN (23:34)
[2021-08-26] MEDS: ALBUTEROL SULFATE 2.5 MG/ 0.5 ML NEBU NEB PRN (23:35)
[2021-08-27] VITALS (25 sets, daily range): BP systolic 131–165; BP diastolic 65–88
[2021-08-27] MEDS: hydrALAZINE HCL 20 MG/1 ML VIAL IV PRN ×2 (04:15→13:45)
[2021-08-27] MEDS: IV 1/2NS 1000 ML 1,000 ML IV PRN (04:40)
[2021-08-27 04:52] LABS: HEMATOCRIT 26.6 % (36.7-47.1); MEAN CORPUSCULAR HEMOGLOBIN 27.2 uug (23.8-33.4); MEAN CORPUSCULAR VOLUME 83.9 fL (73.0-96.2); PLATELET COUNT (AUTO) 171 K/uL (152-348)
[2021-08-27 05:10] LABS: MAGNESIUM 1.7 mg/dL (1.8-2.4); PHOSPHOROUS 5.7 mg/dL (2.5-4.9); POTASSIUM 3.3 mmol/L (3.5-5.1); VANCOMYCIN,RANDOM 20.7 ug/mL (18.0-26.0)
--- NOTE | 2021-08-27 06:40 | NUR ---
Patient remains in stable condition, SR on the monitor, BP stable only had to give one dose of PRN Hydralazine @0415. Patient is currently A/Ox2 able to make needs known. During the night patient passed bedside swallow evaluation by this nurse and was able to swallow thin liquids, applesauce, and pudding without aspiration, good swallow reflex and laryngeal elevation. Patient frequently expressing a desire for real food. Patient requested PO fluids throughout the night, which I provided via straw. Tube feeding currently off but maintained goal of 35ml/hr tolerated well. Vuong remains patent draining clear yellow urine with sediments present. ARPAN picc remains patent, running 0.45% NS @50ml/hr. All wounds cleaned and dressings replaced.
--- NOTE | 2021-08-27 06:50 | NUR ---
Dr. Hernandez legal recruiter in the unit to see the patient. Wounds examined, no new orders.
[2021-08-27] MEDS: BLOOD SUGAR DIAGNOSTIC 1 EACH STRIP VI SCH ×4 (07:05→20:34)
[2021-08-27] MEDS ORDERED: MAGNESIUM SULFATE/D5W 100 ML IV ONE (07:15)
[2021-08-27] MEDS ORDERED: POTASSIUM CHLORIDE 20 MEQ POWDER PACKET NG ONE (07:15)
[2021-08-27] MEDS: ACETYLCYSTEINE 20% 800 MG/4 ML VIAL NEB SCH ×3 (07:38→22:31)
[2021-08-27] MEDS: LEVALBUTEROL HCL 1.25 MG/0.5 ML NEB NEB SCH ×3 (07:39→22:31)
[2021-08-27] MEDS: PANTOPRAZOLE SODIUM 40 MG VIAL IV SCH (08:10)
[2021-08-27] MEDS: METOPROLOL TARTRATE 25 MG TABLET NG SCH ×2 (08:10→20:34)
[2021-08-27] MEDS: Z GUARD REMEDY PASTE 57 GM TUBE TOP SCH ×2 (08:17→20:35)
[2021-08-27] MEDS: NEPRO 1000 ML GT PRN (09:00)
[2021-08-27] MEDS: MEROPENEM 0.5 G in IV NORMAL SALINE 50 ML IV SCH ×2 (10:25→21:57)
[2021-08-27] MEDS: INSULIN REGULAR, HUMAN 300 UNIT/3 ML VIAL SQ PRN (13:09)
[2021-08-27] MEDS: MORPHINE SULFATE 2 MG/1 ML DISP.SYRIN IV PRN (16:25)
[2021-08-27] MEDS: SODIUM HYPOCHLORITE 0.25% (HALF STRENGTH) 480 ML BOTTLE TOP SCH (18:03)
--- NOTE | 2021-08-27 19:30 | NUR ---
Report received. Patient sleeping easily arouses to name. Oriented to place, able to follow commands. "I want some pudding." patient states. Patient advised of his respiratory status and swallow eval done today. O2 3 L NC; O2 sats 99-100%. With audible congestion when turned and repositioned. Suctioned for thick deras secretions via L nares. Patient gets mildly agitated during suctioning. HOB at 45 degrees at all times. Ice chips given after suctioning; no swallowing difficulty but gurgly after taking some ice chips. With NGT feedings at 35 ml/H. Tolerated well; no residuals. Addendum: 08/28/21 at 0010 by JALYN PERDOMO RN Amended: Links added. Addendum: 08/28/21 at 0010 by JALYN PERDOMO RN Amended: Links added.
[2021-08-27] MEDS ORDERED: levoFLOXacin 500 MG TABLET PO SCH (21:00)
[2021-08-28] VITALS (24 sets, daily range): BP systolic 131–162; BP diastolic 59–88
[2021-08-28] MEDS: hydrALAZINE HCL 20 MG/1 ML VIAL IV PRN ×2 (00:46→18:00)
--- NOTE | 2021-08-28 00:50 | NUR ---
Patient uncomfortable in bed. Turned and repositioned. Moans and groans during turning. Medicated with Morphine for generalized discomfort. Addendum: 08/28/21 at 0417 by JALYN PERDOMO RN Amended: Links added. Addendum: 08/28/21 at 0420 by JALYN PERDOMO RN Amended: Links added.
[2021-08-28] MEDS: MORPHINE SULFATE 2 MG/1 ML DISP.SYRIN IV PRN ×2 (00:52→07:11)
[2021-08-28] MEDS: IV 1/2NS 1000 ML 1,000 ML IV PRN (02:18)
--- NOTE | 2021-08-28 04:00 | NUR ---
Am care rendered. Wound care treatment done. Patient suctioned by RT for moderate thick deras secretions. Ice chips given per patient's request. Addendum: 08/28/21 at 0420 by JALYN PERDOMO RN Amended: Links added.
[2021-08-28 05:33] LABS: HEMATOCRIT 26.5 % (36.7-47.1); MEAN CORPUSCULAR VOLUME 84.4 fL (73.0-96.2); PLATELET COUNT (AUTO) 153 K/uL (152-348)
[2021-08-28 05:44] LABS: CREATININE 4.9 mg/dL (0.6-1.3); MAGNESIUM 1.9 mg/dL (1.8-2.4); POTASSIUM 3.3 mmol/L (3.5-5.1); VANCOMYCIN,TROUGH 16.6 ug/mL (12.0-20.0)
[2021-08-28] MEDS: BLOOD SUGAR DIAGNOSTIC 1 EACH STRIP VI SCH ×4 (06:42→21:00)
[2021-08-28] MEDS: INSULIN REGULAR, HUMAN 300 UNIT/3 ML VIAL SQ PRN ×2 (06:43→21:37)
--- NOTE | 2021-08-28 07:30 | NUR ---
Condition unchanged. commercial print salesman: SR-ST. BPs 130's-160's. Hydralazine IV given x 1. O2 3 L NC; sat above 95%. Medicated with Morphine IV x2 for generalized pain. Tolerating NGT feedings well.
[2021-08-28] MEDS: ACETYLCYSTEINE 20% 800 MG/4 ML VIAL NEB SCH ×3 (07:31→23:18)
[2021-08-28] MEDS: LEVALBUTEROL HCL 1.25 MG/0.5 ML NEB NEB SCH ×3 (07:38→23:19)
[2021-08-28] MEDS ORDERED: VANCOMYCIN IV 750 MG in IV DEXTROSE 5% 250 ML IV SCH (08:00)
[2021-08-28] MEDS: PANTOPRAZOLE SODIUM 40 MG VIAL IV SCH (08:32)
[2021-08-28] MEDS: METOPROLOL TARTRATE 25 MG TABLET NG SCH ×2 (08:33→21:16)
[2021-08-28] MEDS: SODIUM HYPOCHLORITE 0.25% (HALF STRENGTH) 480 ML BOTTLE TOP SCH (08:34)
[2021-08-28] MEDS: Z GUARD REMEDY PASTE 57 GM TUBE TOP SCH ×2 (08:44→21:19)
[2021-08-28] MEDS: GENTAMICIN SULFATE 0.1% CREAM 15 GM TUBE TOP SCH ×2 (08:45→18:01)
[2021-08-28] MEDS ORDERED: POTASSIUM CHLORIDE 20 MEQ POWDER PACKET NG ONE (09:00)
[2021-08-28] MEDS ORDERED: diphenhydrAMINE 50 MG/1 ML VIAL IV STA (10:11)
[2021-08-28] MEDS ORDERED: METOCLOPRAMIDE HCL 10 MG/2 ML VIAL IV STA (10:11)
[2021-08-28] MEDS: MEROPENEM 0.5 G in IV NORMAL SALINE 50 ML IV SCH ×2 (10:18→21:32)
[2021-08-28] MEDS: NEPRO 1000 ML GT PRN (11:04)
--- NOTE | 2021-08-28 19:15 | NUR ---
received patient calm . able to follow command , contracted on bothe bilateral upper and lower extremities , on ngt nephro at 35 ml /hr , 1/2 ns at 50 right picc line , multiple wounds dressing intact on nc 3l , elaine intact , no fever
--- NOTE | 2021-08-28 22:30 | NUR ---
Telemetry status. Moved to room 310; report to NOEMY Parker.
--- NOTE | 2021-08-28 22:45 | NUR ---
Pt received from CCU, report from Luke SALGUERO. Pt is AOx4, able to answer all questions and make needs known. ARPAN triple lumen PICC is intact running ordered fluids. NG is in place running ordered Nepro at 35cc. Vuong draining dez colored urine. ST on monitor. No distress noted. Patient is refusing air mattress stating that it is cold and uncomfortable. Patient educated on importance of air mattress and he still declined to have it.
[2021-08-29] MEDS: hydrALAZINE HCL 20 MG/1 ML VIAL IV PRN ×2 (00:02→13:11)
[2021-08-29 04:06] VITALS: BP 178/71
[2021-08-29] MEDS: IV 1/2NS 1000 ML 1,000 ML IV PRN (06:09)
--- NOTE | 2021-08-29 06:21 | NUR ---
Pt slept throughout the night. Denies pain or SOB. Titrated to 2L NC, tolerating well. Vuong draining dez colored urine. IV intact. Wound care done to patients sacrum. Will endorse to day shift.
[2021-08-29] MEDS: BLOOD SUGAR DIAGNOSTIC 1 EACH STRIP VI SCH ×4 (06:44→21:00)
[2021-08-29 06:57] LABS: CREATININE 4.1 mg/dL (0.6-1.3); PHOSPHOROUS 5.1 mg/dL (2.5-4.9); POTASSIUM 3.5 mmol/L (3.5-5.1)
[2021-08-29] MEDS: LEVALBUTEROL HCL 1.25 MG/0.5 ML NEB NEB SCH ×4 (07:35→23:19)
[2021-08-29] MEDS: ACETYLCYSTEINE 20% 800 MG/4 ML VIAL NEB SCH ×4 (07:35→23:18)
[2021-08-29 08:54] LABS: HEMATOCRIT 27.9 % (36.7-47.1); MEAN CORPUSCULAR HEMOGLOBIN 26.2 uug (23.8-33.4); MEAN CORPUSCULAR VOLUME 85.5 fL (73.0-96.2); PLATELET COUNT (AUTO) 146 K/uL (152-348)
[2021-08-29] MEDS: Z GUARD REMEDY PASTE 57 GM TUBE TOP SCH ×2 (09:00→20:04)
--- NOTE | 2021-08-29 09:00 | NUR ---
Received pt from leather toggler RN. Pt is calm, no signs of acute distress, provided wound care and changed dressing. placed air mattress under pt. Pt has been refusing air mattress but complied with us placing it this am. Will continue to monitor.
[2021-08-29] MEDS: PANTOPRAZOLE SODIUM 40 MG VIAL IV SCH (09:06)
[2021-08-29] MEDS: METOPROLOL TARTRATE 25 MG TABLET NG SCH ×2 (09:36→20:03)
[2021-08-29] MEDS: INSULIN REGULAR, HUMAN 300 UNIT/3 ML VIAL SQ PRN (09:50)
[2021-08-29] MEDS: MEROPENEM 0.5 G in IV NORMAL SALINE 50 ML IV SCH ×2 (10:14→21:48)
[2021-08-29 10:30] VITALS: BP 187/80
[2021-08-29] MEDS: GENTAMICIN SULFATE 0.1% CREAM 15 GM TUBE TOP SCH ×2 (10:32→16:17)
[2021-08-29] MEDS: SODIUM HYPOCHLORITE 0.25% (HALF STRENGTH) 480 ML BOTTLE TOP SCH (10:32)
--- NOTE | 2021-08-29 13:15 | NUR ---
Pt is a/o x 3, currently on 2L NC. Pt has NG tube (Nepro running at 35cc off at 0600/ on at 0800. Pt's BP was elevated 180/76 MT 96, gave PRN Hydralazine. Blood glucose no need for coverage at this time. Will continue to monitor. No acute signs of distress.
--- NOTE | 2021-08-29 14:30 | NUR ---
Reassessed pt's BP, decreased to 145/63. No acute signs of distress. Will continue to monitor.
[2021-08-29 15:38] VITALS: BP 145/63
--- NOTE | 2021-08-29 17:45 | NUR ---
Pt has a procedure for Monday08/30/2021 for a debridement of the sacrum and left buttock. Pt is alert and oriented, he refused and denied consent for the procedure. Risks and benefits were explained to the patient but he still refused consent. Left a message on a voicemail for Isabella Howell at . Will endorse to math professor nurse to follow up.
[2021-08-29] MEDS: VANCOMYCIN IV 1,000 MG in IV DEXTROSE 5% 250 ML IV SCH (20:01)
[2021-08-29 20:42] VITALS: BP 169/67
[2021-08-29] MEDS ORDERED: levoFLOXacin 250 MG TABLET PO SCH (21:00)
--- NOTE | 2021-08-29 21:13 | NUR ---
Received patient AOx4. No acute distress noted. All medicates were given as ordered. Patient refused to get his accucheck. He advised "They already did it earlier". Call light within reach, bed alarm activated. Safety and comfort measures maintained. Will continue to monitor.
--- NOTE | 2021-08-29 23:05 | NUR ---
Talked to the patient and he refused tx after tx was scanned. Return the medication to the retun bin. NOEMY Parker aware and notified.
[2021-08-30] MEDS: hydrALAZINE HCL 20 MG/1 ML VIAL IV PRN ×2 (00:07→22:16)
[2021-08-30 00:34] VITALS: BP 188/74
[2021-08-30 04:46] VITALS: BP 181/67
--- NOTE | 2021-08-30 05:17 | NUR ---
Patient slept intermittently throughout the night. No distress noted. NG tube in place running Nepro at 35cc. No residual. IV site intact. Vuong draining dez urine. Patient refused oral care but mouth was moistened with some water. Patient has been refusing nebulizer treatments, explained benefits, patient still refused. Wound care done to sacral region and bilateral heels, tolerated well. No other issues or concerns at this time, will endorse to day shift.
[2021-08-30 06:36] LABS: CREATININE 3.6 mg/dL (0.6-1.3); MAGNESIUM 1.9 mg/dL (1.8-2.4); PHOSPHOROUS 5.1 mg/dL (2.5-4.9); POTASSIUM 3.5 mmol/L (3.5-5.1)
[2021-08-30] MEDS: BLOOD SUGAR DIAGNOSTIC 1 EACH STRIP VI SCH ×3 (06:39→17:41)
[2021-08-30 07:25] LABS: HEMATOCRIT 27.6 % (36.7-47.1); MEAN CORPUSCULAR HEMOGLOBIN 27.1 uug (23.8-33.4); MEAN CORPUSCULAR VOLUME 85.6 fL (73.0-96.2); PLATELET COUNT (AUTO) 187 K/uL (152-348)
--- NOTE | 2021-08-30 07:30 | NUR ---
RECEIVED ON FIRST STEP VIVI AWAKE ALERT VERBALLY RESPONDING BUT IS SOME WHAT UNCLEAR ALL NEEDS ANTICIPATED AND SATISFIED TURNED AND REPOSITIONED WITH BILATERAL STIFFNESS OF UPPER AND LOWER EXT WITH MULTIPLE DECUBS AND PRESSURE ULCER AREAS ORDERED HOB UP WITH O2 ORDERED WITH NO S/S OF SHORTNESS OF BREATH AT THIS TIME.NGT IS IN P[LACE WITH FEEDING OFF AT THIS TIME ORDERED WITH NO GASTRIC RESIDUAL.ARREDONDO CATH TO GRAVITY DRAINAGE WITH NO HEMATURIA AT THIS TIME.NO S/S OF HYPO/HYPERGLYCEMIC REACTIONS AT THIS TIME WILL CONTINUE TO OBSERVE.
[2021-08-30] MEDS: INSULIN REGULAR, HUMAN 300 UNIT/3 ML VIAL SQ PRN ×2 (07:35→17:42)
[2021-08-30] MEDS: LEVALBUTEROL HCL 1.25 MG/0.5 ML NEB NEB SCH ×3 (07:35→23:20)
[2021-08-30] MEDS: ACETYLCYSTEINE 20% 800 MG/4 ML VIAL NEB SCH ×3 (07:35→23:20)
[2021-08-30] MEDS: PANTOPRAZOLE SODIUM 40 MG VIAL IV SCH (08:21)
[2021-08-30] MEDS: METOPROLOL TARTRATE 25 MG TABLET NG SCH ×2 (08:23→20:03)
[2021-08-30] MEDS: GENTAMICIN SULFATE 0.1% CREAM 15 GM TUBE TOP SCH ×2 (08:24→17:41)
[2021-08-30] MEDS: SODIUM HYPOCHLORITE 0.25% (HALF STRENGTH) 480 ML BOTTLE TOP SCH (08:24)
[2021-08-30] MEDS: Z GUARD REMEDY PASTE 57 GM TUBE TOP SCH ×2 (08:25→20:04)
[2021-08-30] MEDS: NEPRO 1000 ML GT PRN (08:26)
--- NOTE | 2021-08-30 08:46 | NUR ---
DR HEWITT HERE TO SEE PATIENT WITH NEW ORDERS AND NOT4ED
[2021-08-30] MEDS: MEROPENEM 0.5 G in IV NORMAL SALINE 50 ML IV SCH ×2 (10:15→21:25)
[2021-08-30 11:54] VITALS: BP 145/48
--- NOTE | 2021-08-30 12:00 | NUR ---
PATIENT IS CONGESTED AND WHEEZING RESPIRATORY THERAPIST HAVE MADE SEVRAL ATTEMPTS TO GIVE HIM THE HAND HELD NEBULIZERS ORDERED AND PATIENT HAS REFUSED DR HEWITT AWARE OF PATIENT REFUSING THE HHNS.
--- NOTE | 2021-08-30 14:30 | NUR ---
SPEECH THERAPIST HERE SEEN PATIENT AND WAS UNABLE TO ADVANCE WILL CONTINUE WITH NGT ORDERED.
[2021-08-30 16:08] VITALS: BP 106/83
[2021-08-30] MEDS ORDERED: SILVER NITRATE APPLICATOR STICK EACH TP ONE (16:30)
--- NOTE | 2021-08-30 18:00 | NUR ---
CONTINUE WITH NGT FEEDINGS ORDERED WITH NO GASTRIC RESIDUAL AT THIS TIME SEEN BY THE SCHOOL GUIDANCE COUNSELOR AND THE RENAL DOCTOR WITH NO NEW ORDERS AT THIS TIME.
--- NOTE | 2021-08-30 19:30 | NUR ---
Received patient lying in bed. AAOx2-3. Able to answer simple question. In no apparent distress. On O2 at 2LPM via NC in place. O2 sat at 100%. NGT in place. On Nephro at 35cc/hr via NGT. PICC line on left upper arm intact and patent. Dressing change to PICC line. No signs or symptoms of infection. Fole catheter intact and draining via gravity. Safety measure initiated and call albright within reached.
[2021-08-30] MEDS ORDERED: DEXTROSE 50% 50 ML DISP.SYRIN IV PRN ×2 (19:40→19:45)
[2021-08-30 20:00] VITALS: BP 180/65
--- NOTE | 2021-08-30 21:00 | NUR ---
Patient NSR on tele with HR of 95/min. Appears comfortable at this time.
[2021-08-31] VITALS: BP 169/57
[2021-08-31] MEDS ORDERED: BLOOD SUGAR DIAGNOSTIC 1 EACH STRIP VI SCH
[2021-08-31] MEDS: BLOOD SUGAR DIAGNOSTIC 1 EACH STRIP VI SCH ×5 (00:20→23:58)
[2021-08-31] MEDS: INSULIN REGULAR, HUMAN 300 UNIT/3 ML VIAL SQ PRN ×3 (00:22→18:17)
--- NOTE | 2021-08-31 00:35 | NUR ---
Pt was given Apresoline 25mg IVP for BP of 186/85, HR 96 at 2216. recheck BP at this time, BP 169/57, HR 100. Patient asleep at this time, appears comfortable. In no apparent distress. ANICETO Fraser made aware of patient current condition with no new order given. Continue to monitor.
[2021-08-31] MEDS: ACETAMINOPHEN 650 MG/20.3 ML LIQUID UDC NG PRN (02:30)
[2021-08-31 04:00] VITALS: BP 157/58
[2021-08-31 06:01] LABS: HEMATOCRIT 26.2 % (36.7-47.1); MEAN CORPUSCULAR HEMOGLOBIN 26.9 uug (23.8-33.4); MEAN CORPUSCULAR VOLUME 86.2 fL (73.0-96.2); PLATELET COUNT (AUTO) 209 K/uL (152-348)
[2021-08-31 06:10] LABS: CREATININE 3.2 mg/dL (0.6-1.3); MAGNESIUM 2.2 mg/dL (1.8-2.4); PHOSPHOROUS 4.6 mg/dL (2.5-4.9); POTASSIUM 3.1 mmol/L (3.5-5.1)
--- NOTE | 2021-08-31 06:36 | NUR ---
AAOx2-3. Slept well last night. Turned and reposition for comfort. On O2 at 2LPM via NC in place. O2 sat at 99%. NGT remains intact and patent. PICC line with 3 lumen on left upper arm remains intact and patent. No adverse effect noted from IV antibiotic. Sinus tachy on tele with a HR of 103/min. Vuong catheter intact and draining via gravity. Safety measure maintained and call albright within reached.
[2021-08-31] MEDS ORDERED: POTASSIUM CHLORIDE 20 MEQ POWDER PACKET GT ONE (07:30)
[2021-08-31] MEDS: ACETYLCYSTEINE 20% 800 MG/4 ML VIAL NEB SCH ×3 (07:32→23:30)
[2021-08-31] MEDS: LEVALBUTEROL HCL 1.25 MG/0.5 ML NEB NEB SCH (07:32)
[2021-08-31] MEDS ORDERED: FUROSEMIDE 20 MG/2 ML VIAL IV ONE (08:00)
--- NOTE | 2021-08-31 08:00 | NUR ---
AWAKE ALERT AND VERBALLY RESPONSIVE, NO SS OF ACUTE PAIN OR RESPIRATORY DISTRESS. REQUIRES FREQUENT ORAL SUCTIONING FOR MODERATE SECRETION, ORAL CARE DONE. TURN Q2 HRS FOR COMFORT
[2021-08-31] MEDS: PANTOPRAZOLE SODIUM 40 MG VIAL IV SCH (09:17)
[2021-08-31] MEDS: VANCOMYCIN IV 1,000 MG in IV DEXTROSE 5% 250 ML IV SCH (09:17)
[2021-08-31] MEDS: METOPROLOL TARTRATE 25 MG TABLET NG SCH ×2 (09:18→20:28)
[2021-08-31] MEDS: SODIUM HYPOCHLORITE 0.25% (HALF STRENGTH) 480 ML BOTTLE TOP SCH (09:23)
[2021-08-31] MEDS: AMLODIPINE 5 MG TABLET PO SCH ×2 (09:23→20:26)
[2021-08-31] MEDS: GENTAMICIN SULFATE 0.1% CREAM 15 GM TUBE TOP SCH ×2 (09:24→16:29)
[2021-08-31] MEDS: Z GUARD REMEDY PASTE 57 GM TUBE TOP SCH ×2 (09:24→20:25)
[2021-08-31] MEDS: MEROPENEM 0.5 G in IV NORMAL SALINE 50 ML IV SCH ×2 (09:25→21:29)
--- NOTE | 2021-08-31 11:18 | NUR ---
SILVER NITRATE AND XYLOCAINE GIVEN BY WOUND NURSE
[2021-08-31] MEDS: NEPRO 1000 ML GT PRN (11:29)
[2021-08-31] MEDS ORDERED: LIDOCAINE 1%-EPI 1:200,000 MPF 30 ML VIAL IJ ONE (11:30)
[2021-08-31 12:00] VITALS: BP 172/69
--- NOTE | 2021-08-31 12:00 | NUR ---
SERIAL DEBRIDEMENT OF SACRAL WOUND DONE AT BEDSIDE PATIENT TOLERATED WELL
[2021-08-31] MEDS ORDERED: IV D5W 1000ML 1,000 ML IV ONE (15:15)
[2021-08-31 16:00] VITALS: BP 156/57
--- NOTE | 2021-08-31 16:10 | NUR ---
SEEN BY DR VEGA FOR NEHRO FOLLOW-UP SEE NOTES
--- NOTE | 2021-08-31 19:00 | NUR ---
Patient noted trying to pull out his NGT. Both this nurse and day shift nurse Nancy was able to reinforce adhesive on NGT. Secretions was suctioned by Nancy and obtained moderate amount of thick secretions and this nurse provided oral care. turned and repositioned for comfort. Kept HOB elevated. Shift report obtained from Nancy. Assumed care of patient. Continue to monitor.
--- NOTE | 2021-08-31 19:28 | NUR ---
Noted patient NGT was pulled out. Informed TELEPHONE SOLICITOR Ke. Patient will be NPO after midnight for GT placement tomorrow, which will be done by Dr. Kamara. IC done. TELEPHONE SOLICITOR Ke with order to just leave NGT off since pt is due for GT placement tomorrow as he most likely will try to pull it out again if new one is placed. Continue to monitor patient.
[2021-08-31 20:00] VITALS: BP 149/71
--- NOTE | 2021-08-31 21:14 | NUR ---
Transfer care to NOEMY Fernandes. SBAR report given.
--- NOTE | 2021-08-31 21:20 | NUR ---
Received patient in bed, obtunded, responds to painful stimuli. HOB elevated. Generalized edema noted. PICC line on ARPAN intact and patent with continuos IV fluid infusing. F/c intact and draining dark yellow urine. BLE contracted. Kept NPO as ordered for EGD and PEG placement in AM.
[2021-09-01] MEDS: LEVALBUTEROL HCL NEB 0.63 MG/3 ML NEBU NEB PRN ×2 (00:11→14:31)
[2021-09-01 04:00] VITALS: BP 179/62
[2021-09-01] MEDS: hydrALAZINE HCL 20 MG/1 ML VIAL IV PRN ×2 (05:00→17:08)
[2021-09-01] MEDS: BLOOD SUGAR DIAGNOSTIC 1 EACH STRIP VI SCH ×4 (05:29→23:46)
--- NOTE | 2021-09-01 06:08 | NUR ---
Slept good. Wound care done to sacral, left buttocks and both lower extremities wounds as ordered, tolerated well, and cooperative. No complaint presented. Kept NPO for EGD and PEG placement today. Made comfortable at all times. Not in distress. Continue care as planned.
[2021-09-01 06:19] LABS: HEMATOCRIT 26.4 % (36.7-47.1); MEAN CORPUSCULAR VOLUME 85.8 fL (73.0-96.2); PLATELET COUNT (AUTO) 223 K/uL (152-348)
[2021-09-01 06:29] LABS: CREATININE 2.8 mg/dL (0.6-1.3); PHOSPHOROUS 4.3 mg/dL (2.5-4.9); POTASSIUM 3.4 mmol/L (3.5-5.1)
[2021-09-01] MEDS: ACETYLCYSTEINE 20% 800 MG/4 ML VIAL NEB SCH ×3 (07:35→23:30)
[2021-09-01] MEDS: PANTOPRAZOLE SODIUM 40 MG VIAL IV SCH (08:26)
[2021-09-01] MEDS: SODIUM HYPOCHLORITE 0.25% (HALF STRENGTH) 480 ML BOTTLE TOP SCH (08:27)
[2021-09-01] MEDS: GENTAMICIN SULFATE 0.1% CREAM 15 GM TUBE TOP SCH ×2 (08:28→17:04)
[2021-09-01] MEDS: AMLODIPINE 5 MG TABLET PO SCH ×3 (08:29→21:34)
[2021-09-01] MEDS: Z GUARD REMEDY PASTE 57 GM TUBE TOP SCH ×2 (08:37→20:58)
--- NOTE | 2021-09-01 08:50 | NUR ---
seen by Dr Perez- informed of congestion and pt without NGT- unable to give Lopressor and pt going to surgery- states it's ok. Pt is awake, maintains eye contact when talked to, but doesn't answer questions. For EGD/PEG placement today- no schedule yet, kept pt NPO
[2021-09-01] MEDS: METOPROLOL TARTRATE 25 MG TABLET NG SCH ×3 (08:58→21:34)
[2021-09-01] MEDS: MEROPENEM 0.5 G in IV NORMAL SALINE 50 ML IV SCH ×2 (10:03→21:35)
[2021-09-01] MEDS: FUROSEMIDE 20 MG/2 ML VIAL IV SCH ×2 (10:03→20:55)
[2021-09-01] MEDS ORDERED: POTASSIUM CHLORIDE 20 MEQ POWDER PACKET GT ONE (10:30)
[2021-09-01] MEDS ORDERED: POTASSIUM CHLORIDE 50 ML IV ONE (11:00)
--- NOTE | 2021-09-01 11:00 | NUR ---
still no time for surgery yet, oral care given, wound care done as ordered, repositioned q 2h with pillows for support, off loading both heels, contracted on both lower and upper extremities. kept npo as ordered.
[2021-09-01 12:00] VITALS: BP 138/58
[2021-09-01] MEDS ORDERED: IV D5 1/2 NS 1000 ML 1,000 ML IV PRN (13:00)
[2021-09-01 16:00] VITALS: BP 168/72
[2021-09-01] MEDS: IV D5W 1000ML 1,000 ML IV PRN (17:39)
--- NOTE | 2021-09-01 18:30 | NUR ---
NGT #16 placed on right nostril- CXR ordered for placement
--- NOTE | 2021-09-01 19:38 | NUR ---
no today surgery, Rocio Heredia to order NGT back and restart tube feeding.
[2021-09-01 20:00] VITALS: BP 170/74
[2021-09-01] MEDS: NEPRO 1000 ML GT PRN (21:36)
[2021-09-02 04:00] VITALS: BP 173/72
--- NOTE | 2021-09-02 05:49 | NUR ---
Slept intermittently thorughout the night. No distress noted. On 2L NC tolerating well. IV site intact. Vuong draining yellow dez urine. NG-Tube in place running Nepro at 35cc, no residual. No other issues or concerns at this time.
[2021-09-02 06:02] LABS: HEMATOCRIT 26.4 % (36.7-47.1); MEAN CORPUSCULAR HEMOGLOBIN 26.6 uug (23.8-33.4); MEAN CORPUSCULAR VOLUME 86.3 fL (73.0-96.2); PLATELET COUNT (AUTO) 278 K/uL (152-348)
[2021-09-02] MEDS: BLOOD SUGAR DIAGNOSTIC 1 EACH STRIP VI SCH ×4 (06:12→23:00)
[2021-09-02 06:14] LABS: CREATININE 2.8 mg/dL (0.6-1.3); POTASSIUM 3.2 mmol/L (3.5-5.1); VANCOMYCIN,RANDOM 26.8 ug/mL (18.0-26.0)
[2021-09-02] MEDS: INSULIN REGULAR, HUMAN 300 UNIT/3 ML VIAL SQ PRN ×3 (06:20→17:19)
[2021-09-02] MEDS: ACETYLCYSTEINE 20% 800 MG/4 ML VIAL NEB SCH ×3 (07:35→22:31)
[2021-09-02] MEDS: METOPROLOL TARTRATE 25 MG TABLET NG SCH ×2 (08:08→20:03)
[2021-09-02] MEDS: SODIUM HYPOCHLORITE 0.25% (HALF STRENGTH) 480 ML BOTTLE TOP SCH (08:08)
[2021-09-02] MEDS: AMLODIPINE 5 MG TABLET PO SCH ×2 (08:08→20:02)
[2021-09-02] MEDS: GENTAMICIN SULFATE 0.1% CREAM 15 GM TUBE TOP SCH ×2 (08:09→16:25)
[2021-09-02] MEDS: PANTOPRAZOLE SODIUM 40 MG VIAL IV SCH (08:26)
[2021-09-02] MEDS ORDERED: POTASSIUM CHLORIDE 20 MEQ POWDER PACKET GT ONE (08:30)
[2021-09-02] MEDS: hydrALAZINE HCL 50 MG TABLET PO SCH ×3 (08:45→21:08)
[2021-09-02] MEDS ORDERED: POTASSIUM CHLORIDE 20 MEQ TAB.PRT.SR PO ONE ×2 (09:00→13:00)
[2021-09-02] MEDS: Z GUARD REMEDY PASTE 57 GM TUBE TOP SCH ×2 (09:10→20:04)
[2021-09-02] MEDS: MEROPENEM 0.5 G in IV NORMAL SALINE 50 ML IV SCH ×2 (09:14→21:06)
[2021-09-02 11:27] VITALS: BP 158/64
[2021-09-02] MEDS: IV D5W 1000ML 1,000 ML IV PRN ×2 (11:31→22:19)
[2021-09-02] MEDS: LEVALBUTEROL HCL NEB 0.63 MG/3 ML NEBU NEB SCH ×2 (13:40→19:14)
[2021-09-02 15:12] VITALS: BP 127/57
[2021-09-02 20:50] VITALS: BP 167/64
[2021-09-02 22:28] VITALS: BP 150/66
[2021-09-03] MEDS: LEVALBUTEROL HCL NEB 0.63 MG/3 ML NEBU NEB SCH ×4 (00:30→21:11)
[2021-09-03 04:30] VITALS: BP 155/70
[2021-09-03] MEDS: hydrALAZINE HCL 50 MG TABLET PO SCH ×3 (05:01→22:03)
[2021-09-03] MEDS: BLOOD SUGAR DIAGNOSTIC 1 EACH STRIP VI SCH ×3 (05:01→18:22)
[2021-09-03] MEDS: INSULIN REGULAR, HUMAN 300 UNIT/3 ML VIAL SQ PRN ×2 (05:02→18:24)
[2021-09-03 06:35] LABS: HEMATOCRIT 24.7 % (36.7-47.1); MEAN CORPUSCULAR HEMOGLOBIN 27.4 uug (23.8-33.4); MEAN CORPUSCULAR VOLUME 86.2 fL (73.0-96.2); PLATELET COUNT (AUTO) 300 K/uL (152-348)
[2021-09-03 06:56] LABS: CREATININE 2.6 mg/dL (0.6-1.3); POTASSIUM 3.2 mmol/L (3.5-5.1); VANCOMYCIN,RANDOM 20.6 ug/mL (18.0-26.0)
--- NOTE | 2021-09-03 07:30 | NUR ---
Patient received in bed with eyes closed, but easily arousable. On 3L O2 via NC at this time with no SOB or difficulties breathing. No acute distress noted. NG tube in place. Patient kept NPO at this time for possible PEG tube placement. Vuong draining clear yellow urine via gravity. PICC line patent running IVF as ordered. Call light within easy reach. Will continue to monitor.
[2021-09-03] MEDS: METOPROLOL TARTRATE 25 MG TABLET NG SCH ×2 (08:09→20:44)
[2021-09-03] MEDS: PANTOPRAZOLE SODIUM 40 MG VIAL IV SCH (08:09)
[2021-09-03] MEDS: AMLODIPINE 5 MG TABLET PO SCH ×2 (08:10→20:43)
[2021-09-03] MEDS: Z GUARD REMEDY PASTE 57 GM TUBE TOP SCH ×2 (08:10→20:35)
[2021-09-03] MEDS: IV D5W 1000ML 1,000 ML IV PRN ×2 (08:19→23:53)
[2021-09-03] MEDS: GENTAMICIN SULFATE 0.1% CREAM 15 GM TUBE TOP SCH ×2 (08:24→17:04)
[2021-09-03] MEDS: SODIUM HYPOCHLORITE 0.25% (HALF STRENGTH) 480 ML BOTTLE TOP SCH (08:24)
[2021-09-03] MEDS: ACETYLCYSTEINE 20% 800 MG/4 ML VIAL NEB SCH ×3 (08:30→23:30)
[2021-09-03] MEDS: MEROPENEM 0.5 G in IV NORMAL SALINE 50 ML IV SCH ×2 (09:24→21:13)
[2021-09-03] MEDS ORDERED: POTASSIUM CHLORIDE 20 MEQ POWDER PACKET NG SCH (10:00)
[2021-09-03] MEDS: POTASSIUM CHLORIDE 50 ML IV PRN ×6 (11:01→17:17)
[2021-09-03 12:00] VITALS: BP 156/65
--- NOTE | 2021-09-03 12:25 | NUR ---
Patient's BS at this time is 63. [facility] provider Rocio Heredia aware with new orders to re-start tube feeding via NG tube because PEG tube placement procedure is going to be on Monday with Dr. Kamara.
[2021-09-03] MEDS: NEPRO 1000 ML GT PRN (12:28)
[2021-09-03 15:30] VITALS: BP 180/69
[2021-09-03] MEDS: VANCOMYCIN IV 1,000 MG in IV DEXTROSE 5% 250 ML IV SCH (18:12)
[2021-09-03 20:11] VITALS: BP 133/48
[2021-09-04] MEDS: BLOOD SUGAR DIAGNOSTIC 1 EACH STRIP VI SCH ×4 (00:03→17:38)
[2021-09-04] MEDS: LEVALBUTEROL HCL NEB 0.63 MG/3 ML NEBU NEB SCH ×4 (01:30→19:14)
[2021-09-04 04:10] VITALS: BP 148/61
--- NOTE | 2021-09-04 05:32 | NUR ---
Pt slept intermittently throughout the night. Full bed bath given to patient. Oral care done. PICC line dressing done to ARPAN. NG tube in place running Nepro. IV site intact. Vuong draining yellow urine. Safety and comfort provided, no other issues or concerns at this time, will endorse to day shift.
[2021-09-04] MEDS: hydrALAZINE HCL 50 MG TABLET PO SCH ×3 (06:14→21:24)
[2021-09-04] MEDS: INSULIN REGULAR, HUMAN 300 UNIT/3 ML VIAL SQ PRN (06:20)
--- NOTE | 2021-09-04 07:30 | NUR ---
Patient received in bed with eyes closed, but easily arousable. On 2L O2 via NC at this time with no SOB or difficulties breathing. No acute distress noted. NG tube in place, running Nepro as ordered. Vuong draining clear yellow urine via gravity. PICC line patent running IVF as ordered. Call light within easy reach. Will continue to monitor.
[2021-09-04] MEDS: ACETYLCYSTEINE 20% 800 MG/4 ML VIAL NEB SCH ×3 (07:35→23:30)
[2021-09-04 08:27] LABS: MEAN CORPUSCULAR HEMOGLOBIN 27.5 uug (23.8-33.4); MEAN CORPUSCULAR VOLUME 86.1 fL (73.0-96.2); PLATELET COUNT (AUTO) 323 K/uL (152-348)
[2021-09-04 08:32] LABS: CREATININE 2.4 mg/dL (0.6-1.3); MAGNESIUM 1.7 mg/dL (1.8-2.4); POTASSIUM 3.9 mmol/L (3.5-5.1)
[2021-09-04] MEDS: PANTOPRAZOLE SODIUM 40 MG VIAL IV SCH (08:46)
[2021-09-04] MEDS: AMLODIPINE 5 MG TABLET PO SCH ×2 (08:47→21:00)
[2021-09-04] MEDS: METOPROLOL TARTRATE 25 MG TABLET NG SCH ×2 (08:47→21:00)
[2021-09-04] MEDS: Z GUARD REMEDY PASTE 57 GM TUBE TOP SCH ×2 (08:48→21:06)
[2021-09-04] MEDS: MEROPENEM 0.5 G in IV NORMAL SALINE 50 ML IV SCH ×2 (09:03→21:24)
[2021-09-04] MEDS: SODIUM HYPOCHLORITE 0.25% (HALF STRENGTH) 480 ML BOTTLE TOP SCH (09:04)
[2021-09-04] MEDS ORDERED: MAGNESIUM SULFATE/D5W 100 ML IV SCH (11:15)
[2021-09-04] MEDS: IV D5W 1000ML 1,000 ML IV PRN (11:30)
[2021-09-04] MEDS: GENTAMICIN SULFATE 0.1% CREAM 15 GM TUBE TOP SCH ×2 (11:30→17:05)
[2021-09-04 13:18] VITALS: BP 129/61
--- NOTE | 2021-09-04 15:00 | NUR ---
Patient pulled out NG tube. Rocio Heredia notified and okay'ed to not re-insert at this time because patient is going for PEG tube placement tomorrow. D5W running as ordered. Will continue to monitor.
[2021-09-04 16:01] VITALS: BP 150/62
[2021-09-04 20:41] VITALS: BP 153/48
[2021-09-05] MEDS: IV D5W 1000ML 1,000 ML IV PRN (00:09)
[2021-09-05 04:39] VITALS: BP 147/61
[2021-09-05] MEDS: hydrALAZINE HCL 50 MG TABLET PO SCH ×3 (06:00→22:31)
[2021-09-05] MEDS: PANTOPRAZOLE ORAL SUSPENSION 40 MG SUSPDR.PKT NG SCH (06:00)
[2021-09-05] MEDS: BLOOD SUGAR DIAGNOSTIC 1 EACH STRIP VI SCH ×4 (06:05→16:56)
[2021-09-05 07:04] LABS: HEMATOCRIT 22.4 % (36.7-47.1); MEAN CORPUSCULAR HEMOGLOBIN 27.8 uug (23.8-33.4); MEAN CORPUSCULAR VOLUME 86.3 fL (73.0-96.2); PLATELET COUNT (AUTO) 282 K/uL (152-348)
[2021-09-05 07:18] LABS: MAGNESIUM 1.6 mg/dL (1.8-2.4); VANCOMYCIN,RANDOM 20.7 ug/mL (18.0-26.0)
[2021-09-05] MEDS: LEVALBUTEROL HCL NEB 0.63 MG/3 ML NEBU NEB SCH (07:33)
[2021-09-05] MEDS: ACETYLCYSTEINE 20% 800 MG/4 ML VIAL NEB SCH ×3 (07:33→19:30)
[2021-09-05] MEDS ORDERED: ALBUTEROL SULFATE 2.5 MG/3 ML NEBU NEB PRN (08:00)
[2021-09-05 08:09] LABS: CREATININE 2.3 mg/dL (0.6-1.3); POTASSIUM 3.6 mmol/L (3.5-5.1)
[2021-09-05] MEDS: METOPROLOL TARTRATE 25 MG TABLET NG SCH ×2 (09:00→21:19)
[2021-09-05] MEDS: AMLODIPINE 5 MG TABLET PO SCH ×2 (09:00→21:20)
[2021-09-05] MEDS: Z GUARD REMEDY PASTE 57 GM TUBE TOP SCH ×2 (10:18→21:20)
[2021-09-05] MEDS: MEROPENEM 0.5 G in IV NORMAL SALINE 50 ML IV SCH ×2 (10:18→22:17)
[2021-09-05] MEDS: GENTAMICIN SULFATE 0.1% CREAM 15 GM TUBE TOP SCH ×2 (10:19→17:31)
[2021-09-05] MEDS ORDERED: MAGNESIUM SULFATE/D5W 100 ML IV SCH (10:30)
[2021-09-05 11:38] VITALS: BP 150/62
[2021-09-05] MEDS: SODIUM HYPOCHLORITE 0.25% (HALF STRENGTH) 480 ML BOTTLE TOP SCH (11:51)
[2021-09-05] MEDS ORDERED: PROPOFOL 200 MG/20 ML BOTTLE IV ONE (13:21)
[2021-09-05] MEDS: ALBUTEROL SULFATE 1.25 MG/3 ML NEBU NEB SCH ×2 (13:30→19:30)
[2021-09-05 15:44] LABS: HEMATOCRIT 24.6 % (36.7-47.1)
[2021-09-05 16:27] VITALS: BP 156/68
[2021-09-05] MEDS: MORPHINE SULFATE 2 MG/1 ML DISP.SYRIN IV PRN ×2 (17:29→17:45)
[2021-09-05] MEDS: VANCOMYCIN IV 1,000 MG in IV DEXTROSE 5% 250 ML IV SCH (17:32)
[2021-09-05 20:12] VITALS: BP 168/65
[2021-09-06] MEDS: BLOOD SUGAR DIAGNOSTIC 1 EACH STRIP VI SCH ×4 (00:40→17:38)
[2021-09-06] MEDS: ALBUTEROL SULFATE 1.25 MG/3 ML NEBU NEB SCH ×4 (01:30→19:27)
[2021-09-06 04:12] VITALS: BP 138/49
[2021-09-06] MEDS: PANTOPRAZOLE ORAL SUSPENSION 40 MG SUSPDR.PKT NG SCH (05:32)
[2021-09-06] MEDS: hydrALAZINE HCL 50 MG TABLET PO SCH ×3 (05:39→22:48)
[2021-09-06] MEDS: ACETYLCYSTEINE 20% 800 MG/4 ML VIAL NEB SCH ×3 (07:08→22:30)
--- NOTE | 2021-09-06 07:23 | NUR ---
Patient resting in bed, easily arousable. On 1.5L O2 via NC. No signs of acute distress. Patient denies pain/ discomfort. PEG tube in place, feeding will start this am as ordered. Vuong catheter draining clear, yellow urine. Right UA PICC line patent and intact. Marcelinoey Addendum: 09/06/21 at 0727 by KHUSHBU CLEVELAND RN RN Bed alarm on for safety. Needs anticipated and met. Will endorse to incoming shift for continuity of care.
[2021-09-06 07:31] LABS: CREATININE 2.2 mg/dL (0.6-1.3); MAGNESIUM 1.7 mg/dL (1.8-2.4); POTASSIUM 3.3 mmol/L (3.5-5.1)
[2021-09-06 07:43] LABS: HEMATOCRIT 21.5 % (36.7-47.1); MEAN CORPUSCULAR HEMOGLOBIN 27.9 uug (23.8-33.4); MEAN CORPUSCULAR VOLUME 87.5 fL (73.0-96.2); PLATELET COUNT (AUTO) 276 K/uL (152-348)
[2021-09-06] MEDS: METOPROLOL TARTRATE 25 MG TABLET NG SCH ×2 (09:17→21:25)
[2021-09-06] MEDS: AMLODIPINE 5 MG TABLET PO SCH ×2 (09:18→21:26)
[2021-09-06] MEDS: GENTAMICIN SULFATE 0.1% CREAM 15 GM TUBE TOP SCH ×2 (09:19→17:38)
[2021-09-06] MEDS: Z GUARD REMEDY PASTE 57 GM TUBE TOP SCH ×2 (09:22→21:26)
[2021-09-06] MEDS: MEROPENEM 0.5 G in IV NORMAL SALINE 50 ML IV SCH (09:31)
[2021-09-06] MEDS: SODIUM HYPOCHLORITE 0.25% (HALF STRENGTH) 480 ML BOTTLE TOP SCH (09:56)
[2021-09-06] MEDS ORDERED: MAGNESIUM SULFATE/D5W 100 ML IV SCH (10:30)
[2021-09-06 11:38] VITALS: BP 153/55
[2021-09-06] MEDS ORDERED: POTASSIUM CHLORIDE 50 ML IV SCH (12:30)
[2021-09-06] MEDS ORDERED: POTASSIUM CHLORIDE 20 MEQ TAB.PRT.SR PO ONE (12:30)
[2021-09-06] MEDS: MORPHINE SULFATE 2 MG/1 ML DISP.SYRIN IV PRN ×2 (13:52→22:32)
[2021-09-06 14:26] LABS: BAND % (MANUAL) 2 % (0-10); LYMPHOCYTES % (MANUAL) 17 % (20-40); MONOCYTES % (MANUAL) 3 % (2-10); NEUTROPHILS % (MANUAL) 63 % (42-75)
[2021-09-06 14:27] LABS: EOSINOPHILS % (MANUAL) 15 % (0-8)
[2021-09-06 15:44] VITALS: BP 146/57
[2021-09-06 16:00] VITALS: BP 146/57
[2021-09-06 16:16] VITALS: BP 154/59
--- NOTE | 2021-09-06 17:02 | NUR ---
HE KEEPS REQUESTING FOOD AND DRINK. SPOKE WITH PLATINUMSMITH. SAYS ORDER ST EVAL FOR TOMORROW. DRANK THREE 30ML CUPS OF H20 WITH NO DIFFICULTY
--- NOTE | 2021-09-06 17:04 | NUR ---
PULLED OUT CENTRAL LINE DURING BLOOD TRANSFUSION. TRANSFUSION STOPPED. NURSING BRANCH BANKER NOTIFIED FOR PICC LINE REPLACEMENT
[2021-09-06 20:09] VITALS: BP 148/55
[2021-09-07] VITALS (7 sets, daily range): BP systolic 121–169; BP diastolic 54–70
[2021-09-07] MEDS: BLOOD SUGAR DIAGNOSTIC 1 EACH STRIP VI SCH ×4 (00:08→18:08)
[2021-09-07] MEDS: ALBUTEROL SULFATE 1.25 MG/3 ML NEBU NEB SCH ×4 (00:46→19:13)
[2021-09-07] MEDS: PANTOPRAZOLE ORAL SUSPENSION 40 MG SUSPDR.PKT NG SCH (05:50)
[2021-09-07] MEDS: hydrALAZINE HCL 50 MG TABLET PO SCH ×3 (05:51→21:36)
--- NOTE | 2021-09-07 07:04 | NUR ---
PATIENT AWAKE BUT FORGETFUL NO SOB NO CHEST PAIN, ON GT FEEDING TOLERATE WELL NO RESIDUAL NOTED, NO VOMITING NOTED, WITH SOFT BM X 1, KEPT CLEAN AND DRY. PATIENT YELLING, ASKING FOR HELP, KEPT PATIENT CLEAN, AND GIVEN PAIN MEDS WITH EFFECTIVE RESULTS, CONT TO MONITOR.
[2021-09-07] MEDS: ACETYLCYSTEINE 20% 800 MG/4 ML VIAL NEB SCH ×3 (07:35→22:39)
[2021-09-07] MEDS: Z GUARD REMEDY PASTE 57 GM TUBE TOP SCH ×2 (09:54→21:37)
[2021-09-07] MEDS: GENTAMICIN SULFATE 0.1% CREAM 15 GM TUBE TOP SCH ×2 (09:54→17:08)
[2021-09-07] MEDS: SODIUM HYPOCHLORITE 0.25% (HALF STRENGTH) 480 ML BOTTLE TOP SCH (09:55)
[2021-09-07] MEDS: METOPROLOL TARTRATE 25 MG TABLET NG SCH ×2 (09:56→21:36)
[2021-09-07] MEDS: AMLODIPINE 5 MG TABLET PO SCH ×2 (09:56→21:37)
[2021-09-07] MEDS: INSULIN REGULAR, HUMAN 300 UNIT/3 ML VIAL SQ PRN (12:19)
[2021-09-07] MEDS ORDERED: GENTAMICIN SULFATE 0.1% TOP (16:46)
--- NOTE | 2021-09-07 16:58 | NUR ---
Patient infusing with 1 unit of blood. Baseline vital signs stable. Left upper arm midline intact. No signs of reaction after 15 minutes. No SOB noted. Vital signs stable. Will continue to monitor
[2021-09-07] MEDS ORDERED: LIDOCAINE 1%-EPI 1:200,000 MPF 30 ML VIAL IJ ONE (17:30)
[2021-09-07] MEDS ORDERED: SILVER NITRATE APPLICATOR STICK EACH TP ONE (17:30)
--- NOTE | 2021-09-07 20:00 | NUR ---
awake confused blood transfusion ended, unable to draw blood from midline , able to flush line x3.G tube tolerating feeding well. head of bed elevated.
[2021-09-07] MEDS: MORPHINE SULFATE 2 MG/1 ML DISP.SYRIN IV PRN (22:00)
--- NOTE | 2021-09-07 22:00 | NUR ---
TOOK PICTURE,REPOSITIONED FOR COMFORT.MEDICATED WITH MORPHINE , ABLE TO RELAX,
[2021-09-07 22:37] LABS: CREATININE 2.2 mg/dL (0.6-1.3); POTASSIUM 3.8 mmol/L (3.5-5.1)
[2021-09-07 22:42] LABS: HEMATOCRIT 29.6 % (36.7-47.1); MEAN CORPUSCULAR VOLUME 84.8 fL (73.0-96.2); PLATELET COUNT (AUTO) 324 K/uL (152-348)
[2021-09-07 23:13] LABS: MAGNESIUM 1.9 mg/dL (1.8-2.4); PHOSPHOROUS 4.9 mg/dL (2.5-4.9)
[2021-09-08] VITALS: BP 133/58
[2021-09-08] MEDS: ALBUTEROL SULFATE 1.25 MG/3 ML NEBU NEB SCH ×3 (00:30→13:30)
[2021-09-08] MEDS: BLOOD SUGAR DIAGNOSTIC 1 EACH STRIP VI SCH ×3 (00:42→11:43)
[2021-09-08 00:47] VITALS: BP 136/72
[2021-09-08] MEDS: MORPHINE SULFATE 2 MG/1 ML DISP.SYRIN IV PRN (01:12)
[2021-09-08 04:00] VITALS: BP 141/54
[2021-09-08] MEDS: PANTOPRAZOLE ORAL SUSPENSION 40 MG SUSPDR.PKT NG SCH (05:43)
[2021-09-08] MEDS: hydrALAZINE HCL 50 MG TABLET PO SCH (05:43)
--- NOTE | 2021-09-08 06:12 | NUR ---
SLEPT AT INTERVALS, RESTING COMFORTABLY INTACT, QUIET.LEFT ARM MIDLINE
[2021-09-08 06:43] LABS: HEMATOCRIT 29.3 % (36.7-47.1); MEAN CORPUSCULAR HEMOGLOBIN 28.1 uug (23.8-33.4); MEAN CORPUSCULAR VOLUME 85.4 fL (73.0-96.2); PLATELET COUNT (AUTO) 303 K/uL (152-348)
[2021-09-08 07:08] LABS: CREATININE 2.2 mg/dL (0.6-1.3); PHOSPHOROUS 4.6 mg/dL (2.5-4.9); POTASSIUM 3.6 mmol/L (3.5-5.1)
[2021-09-08] MEDS: ACETYLCYSTEINE 20% 800 MG/4 ML VIAL NEB SCH (07:35)
[2021-09-08] MEDS: AMLODIPINE 5 MG TABLET PO SCH (08:34)
[2021-09-08] MEDS: SODIUM HYPOCHLORITE 0.25% (HALF STRENGTH) 480 ML BOTTLE TOP SCH (08:36)
[2021-09-08] MEDS: METOPROLOL TARTRATE 25 MG TABLET NG SCH (08:36)
[2021-09-08] MEDS: GENTAMICIN SULFATE 0.1% CREAM 15 GM TUBE TOP SCH (08:37)
[2021-09-08] MEDS: Z GUARD REMEDY PASTE 57 GM TUBE TOP SCH (08:37)
[2021-09-08 11:54] VITALS: BP 141/52
--- NOTE | 2021-09-08 14:10 | NUR ---
Discharged pt. to [facility]. Patient awake, AOx2. On 1L O2 via NC. No signs of acute distress. Gtube in place. Vuong catheter draining yellow, clear urine. IV access removed. ID armband removed. Wound care treatment done as ordered. Discharge paperwork sent to facility via ambulance crew. Nursing report given to NOEMY Nicholson of [facility].
== END 2021-09-08 14:00 | DRG 710 ==
LOC: ER 15:08 → CCU 19:23 → TELE3 08-28 22:30 → MEDSURG3 08-31 08:53
PROVIDERS: ADMIT Internal Medicine; ATTEND Hospitalist
PROC: B548ZZA Ultrasonography of Superior Vena Cava, Guidance (ICD-10-PCS; principal; 2021-08-23)
PROC: 02HV33Z Insertion of Infusion Device into Superior Vena Cava, Percutaneous Approach (ICD-10-PCS; principal; 2021-08-23)
PROC: 30233N1 Transfusion of Nonautologous Red Blood Cells into Peripheral Vein, Percutaneous Approach (ICD-10-PCS; 2021-08-24)
PROC: 0KBP0ZZ Excision of Left Hip Muscle, Open Approach (ICD-10-PCS; 2021-08-31)
PROC: 0KBN0ZZ Excision of Right Hip Muscle, Open Approach (ICD-10-PCS; 2021-08-31)
PROC: 0DH63UZ Insertion of Feeding Device into Stomach, Percutaneous Approach (ICD-10-PCS; 2021-09-05)
PROC: 05H633Z Insertion of Infusion Device into Left Subclavian Vein, Percutaneous Approach (ICD-10-PCS; 2021-09-06)
PROC: B547ZZA Ultrasonography of Left Subclavian Vein, Guidance (ICD-10-PCS; 2021-09-06)
DX: A41.9 Sepsis, unspecified organism (principal); N17.0 Acute kidney failure with tubular necrosis; J69.0 Pneumonitis due to inhalation of food and vomit; E87.2 Acidosis; G92.8 Other toxic encephalopathy; J96.01 Acute respiratory failure with hypoxia; E43 Unspecified severe protein-calorie malnutrition; I50.33 Acute on chronic diastolic (congestive) heart failure; D68.69 Other thrombophilia; L89.154 Pressure ulcer of sacral region, stage 4; L89.324 Pressure ulcer of left buttock, stage 4; E87.0 Hyperosmolality and hypernatremia; I13.0 Hypertensive heart and chronic kidney disease with heart failure and stage 1 through stage 4 chronic kidney disease, or unspecified chronic kidney disease; E11.22 Type 2 diabetes mellitus with diabetic chronic kidney disease; N39.0 Urinary tract infection, site not specified; R65.20 Severe sepsis without septic shock; B96.4 Proteus (mirabilis) (morganii) as the cause of diseases classified elsewhere; B96.89 Other specified bacterial agents as the cause of diseases classified elsewhere; E78.5 Hyperlipidemia, unspecified; E87.5 Hyperkalemia; E87.6 Hypokalemia; F03.90 Unspecified dementia, unspecified severity, without behavioral disturbance, psychotic disturbance, mood disturbance, and anxiety; F20.9 Schizophrenia, unspecified; I25.10 Atherosclerotic heart disease of native coronary artery without angina pectoris; J45.909 Unspecified asthma, uncomplicated; K29.70 Gastritis, unspecified, without bleeding; M62.82 Rhabdomyolysis; N18.9 Chronic kidney disease, unspecified; R13.10 Dysphagia, unspecified; Z20.822 Contact with and (suspected) exposure to COVID-19; Z87.440 Personal history of urinary (tract) infections; N40.1 Benign prostatic hyperplasia with lower urinary tract symptoms; F32.A Depression, unspecified; R74.01 Elevation of levels of liver transaminase levels; N31.9 Neuromuscular dysfunction of bladder, unspecified; R31.0 Gross hematuria; L89.899 Pressure ulcer of other site, unspecified stage; L89.619 Pressure ulcer of right heel, unspecified stage; L89.526 Pressure-induced deep tissue damage of left ankle; K92.2 Gastrointestinal hemorrhage, unspecified; M19.90 Unspecified osteoarthritis, unspecified site; M81.0 Age-related osteoporosis without current pathological fracture; R64 Cachexia; Z79.01 Long term (current) use of anticoagulants; Z79.4 Long term (current) use of insulin; M24.571 Contracture, right ankle; M24.572 Contracture, left ankle; T83.098A Other mechanical complication of other urinary catheter, initial encounter; Y84.8 Other medical procedures as the cause of abnormal reaction of the patient, or of later complication, without mention of misadventure at the time of the procedure; Y92.129 Unspecified place in nursing home as the place of occurrence of the external cause; Y73.8 Miscellaneous gastroenterology and urology devices associated with adverse incidents, not elsewhere classified; B95.2 Enterococcus as the cause of diseases classified elsewhere
CPT/HCPCS: 36415; 36569; 36600; 70030-TC; 70450; 71045; 76770; 83550; 83605; 83735; 84100; 84443; 85018; 85025; 85730; 86850; 86900; 86901; 86920; 87040; 87070; 87077; 87086; 93005; 93307; 94640; 94664; A4217; A4663; A6209; C9113; G0378; J0360; J1815; J1940; J2185; J2270; J2405; J2543; J3370; J3475; J3480; J3490; J3590; J7030; J7040; J7042; J7050; J7060; J7070; J7614; P9016; P9047

== ENCOUNTER 2021-09-09 13:13 | Emergency (ER) | payer OTHER ==
[~2021-09-09] VITALS: Ht 162.6 cm; Wt 68.0 kg
[~2021-09-09 13:13] MED LIST changes: +ACET-2154 PO; +ACET-73 PO; -APIX5TAB PO; -ASPI81TA31 PO; +CRAN3875 PO; -FLUO15CR TP; +GENTAMICIN SULFATE 0.1% TOP; -MERO1VIA23 IV; +NA P133E RC
[2021-09-09] MEDS ORDERED: DIATR MEGLU/DIATRIZOATE SODIUM 30 ML BOTTLE PO ONE (13:14)
--- NOTE | 2021-09-09 13:55 | NUR ---
DR. REYES PLACED G-TUBE 16F, WITH OUT DIFFICULTY.
--- NOTE | 2021-09-09 15:25 | NUR ---
CALLED [facility] TO TAKE THE PT BACK, ETA 70-90 MINUTES.
--- NOTE | 2021-09-09 16:55 | NUR ---
CALLED [facility] AT [phone] AND LET THEM KNOW THAT THE PT IS COMING BACK
--- NOTE | 2021-09-09 17:00 | NUR ---
PT TTRANSFERED TO THE FASCILITY VIA [facility].
[2021-09-09 17:28] VITALS: BP 161/77
== END 2021-09-09 17:30 ==
LOC: ER 13:13
DX: F20.9 Schizophrenia, unspecified (principal); E11.22 Type 2 diabetes mellitus with diabetic chronic kidney disease; N18.9 Chronic kidney disease, unspecified; Z79.4 Long term (current) use of insulin
CPT/HCPCS: 74018; A4663; Q9963